=== PATIENT | female | born 1975 | race African-American/Black ===

== ENCOUNTER 2016-10-06 17:31 | Emergency (ER) | payer OTHER ==
[~2016-10-06 17:31] MED LIST: ALPH-E-MIXED-4400 IU PO; AMOXICILLIN500 M3 PO; ATIVAN0.5 M1 PO; ATIVAN1 MG PO; BENTYL20 MG PO; BLM PO; CLONIDINE0.1 MG PO; DELTASONE20 MG PO; DIFLUCAN150 MG PO; DILAUDID2 MG PO; FLAGYL250 MG PO; IBU600 MG PO; IBUPROFEN800 M1 PO; LEVSIN0.125 MG PO; LEXAPRO 20MG M20 MG PO; LEXAPRO10 M1 PO; LIDOCAINE HCL V15 ML PO; METHADONE HC10 MG/ML PO; METHADONE HYDROC5 MG PO; MOBIC15 M1 PO; MOTRIN 600 MG600 MG PO; NEURONTIN300 MG PO; PEPCID 20MG TAB20 MG PO; PERCOCET 5-3251 EACH PO; PERIOGARD473 ML PO; PROTONIX 40MG T40 MG PO; SEROQUEL 100MG100 MG PO; TRAZODONE50 MG PO; TRIAMCINOLONE A15 G3 TOP; TYLENOL #31 TAB PO; TYLENOL WITH C1 EACH PO; VENTOLIN HFA18 GM INH; VICODIN 5-3001 EACH PO; VISTARIL25 M1 PO; VISTARIL50 M1 PO; VISTARIL50 MG PO; VITAMIN B COMPL1 CAP PO; VITAMIN D3400 IU PO; ZITHROMAX250 M2 PO; ZOFRAN4 M1 PO; ZOFRAN4 M2 PO
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
[2016-10-06] MEDS ORDERED: VICODIN 5-3001 EACH PO (18:58)
[2016-10-06] MEDS ORDERED: AUGMENTIN 875-1 EACH PO (18:58)
[2016-10-06] MEDS ORDERED: BACTROBAN15 GM TOP (18:58)
[2016-10-06 19:14] VITALS: BP 116/76
== END 2016-10-06 19:15 ==
LOC: ERH 17:31
DX: T24.002A Burn of unspecified degree of unspecified site of left lower limb, except ankle and foot, initial encounter (principal); K08.89 Other specified disorders of teeth and supporting structures

== ENCOUNTER 2016-10-11 04:10 | Emergency (ER) | payer OTHER ==
[~2016-10-11] VITALS: Ht 165.1 cm; Wt 78.9 kg
[~2016-10-11 04:10] MED LIST changes: +AUGMENTIN 875-1 EACH PO; +BACTROBAN15 GM TOP
[2016-10-11 04:22] VITALS: BP 130/86
--- NOTE | 2016-10-11 04:33 | ED THROAT/DENTAL COMPLAINT ---
History of Present Illness General Chief Complaint: Sore Throat, Dental Pain Stated Complaint: DENTAL PAIN Source: patient Exam Limitations: no limitations Vital Signs & Intake/Output Vital Signs & Intake/Output Vital Signs Date Time Temp Pulse Resp B/P Pulse O2 O2 Flow FiO2 Ox Delivery Rate 10/11 0422 97.8 96 18 130/86 96 Room Air Allergies Coded Allergies: latex (Severe, ITCHY RASH 06/03/16) lactose (Severe, LACTOSE INTOLERANT 06/03/16) tramadol (Severe, ITCHING 06/03/16) Reconcile Medications Amoxicillin 875 MG TABLET 1 TAB PO BID DENTAL INFECTION Hydrocodone/Acetaminophen ([place] 5-325 Tablet) 5 MG-325 MG TABLET 1 TAB PO BIDP PRN BREAKTHROUGH PAIN Ibuprofen 800 MG TABLET 1 TAB PO PRN PAIN (Reported) Triage Note: PT TO ED COMPLAINING OF A BAD TOOTACHE THAT STARTED LAST NIGHT AFTER SHE AT SOME CAKE. PT STATES THAT SHE TOOK SOME TYLENOL ABOUT 30 MINUTES AGO FOR THE TOOTHACE. PT ALSO COMPLAINS OF NAUSEA. Triage Nurses Notes Reviewed? yes Onset: Gradual Duration: week(s): (1), worse persistent since (LAST NIGHT) Timing: recent history Injury Environment: home Severity: moderate : No Patient currently breastfeeds: No HPI: 41 year female presents with worsening tooth pain x 1 week. She states it got worse after eating cake yesterday. No fever or chills. She states that she is due to see the dentist. Past History Travel History Traveled to [place] past 21 day No Medical History Any Pertinent Medical History? 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 No Review of Systems Review of Systems Constitutional: Denies: chills, fever. EENTM: Reports: mouth pain, tooth pain. Respiratory: Denies: cough, short of breath. Cardiovascular: Denies: chest pain. GI: Reports: no symptoms. Genitourinary: Reports: no symptoms. Musculoskeletal: Reports: no symptoms. Skin: Reports: no symptoms. Neurological/Psychological: Reports: no symptoms. Hematologic/Endocrine: Denies: bruising, bleeding. Immunologic/Allergic: Reports: no symptoms. All Other Systems: Reviewed and Negative Physical Exam Physical Exam General Appearance: well developed/nourished, alert, awake Head: atraumatic, normal appearance Eyes: Bilateral: normal appearance, PERRL, EOMI. Ears: Bilateral: canal normal, Tympanic normal. Nose: normal inspection Mouth/Throat: normal mouth inspection, TTP RIGHT MOLAR Neck: normal inspection, supple, full range of motion Cardiovascular/Respiratory: normal breath sounds, normal peripheral pulses Neurologic/Psych: awake, alert, oriented x 3 Diagram Dental: 1) TTP Core Measures ACS in differential dx? No Severe Sepsis Present: No Septic Shock Present: No Progress Differential Diagnosis: carious tooth, odontogenic abscess, tooth fracture Plan of Care: Current Medications Sig/Eusebio Start time Last Medication Dose Stop Time Status Admin Ibuprofen 800 MG ONCE ONE 10/11 0500 UNVr (Motrin) 10/11 0501 Departure Departure Time of Disposition: 0456 Disposition: HOME OR SELF CARE Condition: Stable Clinical Impression Primary Impression: Odontalgia Secondary Impressions: Infected tooth Referrals: UNKNOWN (PCP/Family) Additional Instructions: Take the amoxicillin and ibuprofen as directed. Please follow-up with your dentist in the office. Return to the ER for any changing or worsening symptoms. Departure Forms: Customer Survey General Discharge Information Prescriptions: Current Visit Scripts Amoxicillin 1 TAB PO BID #20 TAB
[2016-10-11] MEDS ORDERED: AMOXICILLIN875 M1 PO (04:55)
[2016-10-11] MEDS ORDERED: IBUPROFEN800 M1 PO (04:55)
== END 2016-10-11 05:12 ==
LOC: ERH 04:10
DX: K04.7 Periapical abscess without sinus (principal); K08.89 Other specified disorders of teeth and supporting structures

== ENCOUNTER 2016-10-16 19:10 | Emergency (ER) | payer OTHER ==
[~2016-10-16] VITALS: Ht 165.1 cm; Wt 77.1 kg
[~2016-10-16 19:10] MED LIST changes: +AMOXICILLIN875 M1 PO
[2016-10-16] MEDS ORDERED: IBUPROFEN800 M1 PO (20:32)
--- NOTE | 2016-10-16 20:58 | ED GI/GU/ABDOMINAL COMPLAINT ---
History of Present Illness General Chief Complaint: General Adult Stated Complaint: "PERIOD CRAMPS" Source: patient, old records Exam Limitations: no limitations Vital Signs & Intake/Output Vital Signs & Intake/Output Vital Signs Date Time Temp Pulse Resp B/P Pulse O2 O2 Flow FiO2 Ox Delivery Rate 10/17 2115 98.1 73 16 104/64 98 Room Air 10/16 1944 97.5 72 18 136/79 98 Room Air ED Intake and Output 10/17 0000 10/16 1200 Intake Total 0 Output Total Balance 0 Intake, Oral 0 Patient 170 lb Weight Allergies Coded Allergies: latex (Severe, ITCHY RASH 06/03/16) lactose (Severe, LACTOSE INTOLERANT 06/03/16) tramadol (Severe, ITCHING 06/03/16) Reconcile Medications Amoxicillin 875 MG TABLET 1 TAB PO BID DENTAL INFECTION Hydrocodone/Acetaminophen ([place] 5-325 Tablet) 5 MG-325 MG TABLET 1 TAB PO BIDP PRN BREAKTHROUGH PAIN Ibuprofen 800 MG TABLET 1 TAB PO PRN PAIN (Reported) Triage Note: PT TO TRIAGE WITH C/O LLQ ABD PAIN 03/09 SINCE THIS MORNING. HX OF OVARIAN CYST. PT DENIES N/V/D, DENIES URINARY S/S, DENIES CHEST PAIN,SOB. PT AFEBRILE IN TRIAGE, VSS. Triage Nurses Notes Reviewed? yes LMP (ages 10-50): now ? N Is pt currently ? No Onset: Abrupt Duration: day(s): (1), constant Timing: recent history Quality/Severity: aching, cramping Severity Numbers: 4 Location: suprapubic Radiation: suprapubic Activities at Onset: none Prior Abdominal Problems: similar symptoms (H/O OVARIAN CYST) No Modifying Factors: none Associated Symptoms: DENIES HPI: 41-year-old female with history of ovarian cyst presents emergency room complaining of suprapubic abdominal pain described as cramping 8 out of 10 intermittent waxing and waning in intensity that came on today. The patient states her menstrual cycle began today as well as scheduled. She has a history of ovarian cyst and is followed by Dr. Chen. She states this pain feels similar. It is nonradiating. She took her last Vicodin today which she had after being seen here last week for a burn states helped with the pain. She denies any diarrhea. She denies chance of vaginal discharge. No history of sexual transmitted disease. No fever no chills no urinary urgency frequency dysuria. (TAMAR CUEVA) Past History Travel History Traveled to [place] past 21 day No Medical History Any Pertinent Medical History? 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 No (TAMAR CUEVA) Review of Systems Review of Systems Constitutional: Reports: see HPI. All Other Systems: Reviewed and Negative Comments Review of systems: See HPI, All other systems negative. Constitutional, no chills no fever, no malaise HEENT: no sore throat no congestion, no ear pain Cardiovascular: No chest pain , no palpitation Skin, no rashes, no change in skin Respiratory: No dyspnea no cough no sputum no hemoptysis GI: No nausea no vomiting, no diarrhea, no bloating/constipation : No dysuria No hematuria, no frequency, no discharge Muscle skeletal: No joint pain, no back pain, no neck pain, Neurologic: no headache Psych: No stress Heme/endocrine: No bruising no bleeding Immunology: No lymphadenopathy, (TAMAR CUEVA) Physical Exam Physical Exam General Appearance: well developed/nourished, alert, awake Gastrointestinal: soft Comments: Well-developed well-nourished person in no acute distress HEENT: Normal EENT exam; PERRL, EOMI, HEAD is atraumatic. moist mucous membranes. Neck: Supple, normal range of motion Back: Nontender, no CVA tenderness. Full range of motion Cardiovascular: Regular rate and rhythms no murmurs rubs Respiratory: No respiratory distress. Patient speaking in full complete sentences. Breath sounds clear to auscultation bilaterally: NO W/R/R Abdomen: Soft, nontender nondistended, no appreciable organomegaly. Normal bowel sounds. No rebound/guarding, is no right lower quadrant tenderness negative Rovsing sign and negative obturator sign Extremity: No edema, full range of motion of extremities, Neuro: Alert oriented x3, motor sensory normal, There were no obvious focal neurologic abnormalities. Skin: No appreciable rash on exposed skin, skin is warm and dry. Psych: Mood and affect is normal, memory and judgment is normal. Core Measures ACS in differential dx? No Severe Sepsis Present: No Septic Shock Present: No (TAMAR CUEVA) Progress Differential Diagnosis: ectopic , inflamm bowel dis, intrauterine , ovarian cyst, ovarian torsion, SBO, threatened AB, UTI/pyelo Plan of Care: Orders Procedure Date/time Status URINE 10/17 2015 Complete URINALYSIS 10/17 2015 Complete Laboratory Tests 10/16/162023: Urinalysis MANY H, Urine Color PINK H, Urine Clarity CLEAR, Urine pH 6.0, Ur Specific [place] <= 1.005, Urine Protein 100 H, Urine Ketones NEG, Urine Nitrite NEG, Urine Bilirubin NEG, Urine Urobilinogen 0.2, Ur Leukocyte Esterase TRACE H, Ur Microscopic SEDIMENT EXAMINED, Urine RBC 10-15 H, Urine WBC 1-3 H , Ur Epithelial Cells FEW, Urine Bacteria FEW H, Urine Mucus FEW, Urine Hemoglobin LARGE H, Urine Glucose NEG, Urine Test NEGATIVE Patient clinically appears well, I advised she follow up with her GEOGRAPHY INSTRUCTOR Dr. Mitchell tomorrow she may need an outpatient ultrasound prescription for Vicodin was provided, advised she continue taking ibuprofen 800 mg every 8 hours heating pads, return anytime sooner with any concerns she feels comfortable this plan answered all her questions cleared for discharge (TAMAR CUEVA) Initial ED EKG: none (TAMAR CUEVA) Departure Departure Time of Disposition: 2108 Disposition: HOME OR SELF CARE Condition: Stable Clinical Impression Primary Impression: Abdominal pain Referrals: CARL FINK,ADRYAN STEVEN (PCP/Family) Additional Instructions: Follow-up with your GEOGRAPHY INSTRUCTOR tomorrow as you may require an outpatient ultrasound. Vicodin for breakthrough pain. Use caution as this is a narcotic and highly addictive no driving or drinking alcohol while taking. Ibuprofen 800 mg every 8 hours Departure Forms: Customer Survey General Discharge Information Prescriptions: Current Visit Scripts Hydrocodone/Acetaminophen ([place] 5-325 Tablet) 1 TAB PO BIDP PRN BREAKTHROUGH PAIN #8 TAB (TETE DIAZ,TAMAR) PA/ELECTROLYSIS ENGINEER Co-Sign Statement Statement: ED Attending supervision documentation- [] I saw and evaluated the patient. I have also reviewed all the pertinent lab results and diagnostic results. I agree with the findings and the plan of care as documented in the PA's/ELECTROLYSIS ENGINEER's documentation. [x] I have reviewed the ED Record and agree with the PA's/ELECTROLYSIS ENGINEER's documentation. [] Additions or exceptions (if any) to the PAs/ELECTROLYSIS ENGINEER's note and plan are summarized below: [] (YULI FINK,JESUS Pryor)
[2016-10-16] MEDS ORDERED: NORCO 5-325 TA1 EACH PO (21:11)
[2016-10-16 21:16] VITALS: BP 104/64
== END 2016-10-16 21:19 ==
LOC: ERH 19:10
DX: R10.32 Left lower quadrant pain (principal)
CPT/HCPCS: 81001; 81025

== ENCOUNTER 2016-10-27 22:07 | Emergency (ER) | payer OTHER ==
[~2016-10-27] VITALS: Ht 165.1 cm; Wt 77.1 kg
[~2016-10-27 22:07] MED LIST changes: +NORCO 5-325 TA1 EACH PO
[2016-10-28] MEDS ORDERED: HYDROCODON-ACE1 EAC2 PO (00:09)
--- NOTE | 2016-10-28 00:11 | ED THROAT/DENTAL COMPLAINT ---
History of Present Illness General Chief Complaint: Sore Throat, Dental Pain Stated Complaint: DENTAL PAIN Source: patient Exam Limitations: no limitations Vital Signs & Intake/Output Vital Signs & Intake/Output Vital Signs Date Time Temp Pulse Resp B/P Pulse O2 O2 Flow FiO2 Ox Delivery Rate 10/28 0016 98.9 88 18 127/75 97 Room Air 10/27 2225 99.2 92 18 143/88 96 Room Air ED Intake and Output 10/28 0000 10/27 1200 Intake Total Output Total Balance Patient 170 lb Weight Allergies Coded Allergies: latex (Severe, ITCHY RASH 06/03/16) lactose (Severe, LACTOSE INTOLERANT 06/03/16) tramadol (Severe, ITCHING 06/03/16) Reconcile Medications Amoxicillin 875 MG TABLET 1 TAB PO BID DENTAL INFECTION Hydrocodone/Acetaminophen (Hydrocodon-Acetaminophen 5-325) 5 MG-325 MG TABLET 1-2 TAB PO Q4-6 PRN PRN pain Hydrocodone/Acetaminophen ([place] 5-325 Tablet) 5 MG-325 MG TABLET 1 TAB PO BIDP PRN BREAKTHROUGH PAIN Ibuprofen 800 MG TABLET 1 TAB PO PRN PAIN (Reported) Triage Note: PT TO ED C/O RT LOWER TOOTH PAIN TODAY Triage Nurses Notes Reviewed? yes Onset: Abrupt Duration: day(s):, intermittent Timing: recent history Severity: moderate, severe No Modifying Factors: none : No Patient currently breastfeeds: No HPI: 41-year-old female comes into emergency room with complaints of dental pain has been going on for the past few days. History of dental pain previously. Pain is sharp. Continuous. Located in the right frontal tooth as well as right upper molar. Denies any other associated symptoms. Nonradiating. (TRACIE GARCIA) Past History Travel History Traveled to [place] past 21 day No Medical History Any Pertinent Medical History? 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 No (TRACIE GARCIA) Review of Systems Review of Systems Constitutional: Reports: no symptoms. EENTM: Reports: see HPI. Respiratory: Reports: no symptoms. Cardiovascular: Reports: no symptoms. GI: Reports: no symptoms. Genitourinary: Reports: no symptoms. Musculoskeletal: Reports: no symptoms. Skin: Reports: no symptoms. Neurological/Psychological: Reports: no symptoms. Hematologic/Endocrine: Reports: no symptoms. Immunologic/Allergic: Reports: no symptoms. All Other Systems: Reviewed and Negative (TRACIE GARCIA) Physical Exam Physical Exam General Appearance: well developed/nourished, no apparent distress, alert Head: atraumatic, normal appearance Eyes: Bilateral: normal appearance. Nose: normal inspection Mouth/Throat: normal mouth inspection, dental tenderness Neck: normal inspection, full range of motion Cardiovascular/Respiratory: no respiratory distress Back: normal inspection Neurologic/Psych: awake, alert, oriented x 3 Skin: intact, normal color Diagram Dental: 1) tenderness 2) Tenderness Core Measures ACS in differential dx? No Severe Sepsis Present: No Septic Shock Present: No (TRACIE GARCIA) Progress Differential Diagnosis: aspirated tooth, carious tooth, epiglottitis, Ludwigs angina, meningitis, odontogenic abscess, rishabh-tonsillar abscess, pharyngeal for. body, stomatitis/gingivitis, strep pharyngitis, tooth fracture Plan of Care: 10/28/2016 12:16:01 AM Patient clinically looks well. Nontoxic-appearing. No signs of infection. At this time patient will not be started on oral antibiotics. Follow-up with dentist. Return if any other concerns worsening symptoms. (TRACIE GARCIA) Departure Departure Disposition: HOME OR SELF CARE Condition: Stable Clinical Impression Primary Impression: Odontalgia Referrals: UNKNOWN (PCP/Family) Additional Instructions: Take Vicodin for pain. Follow-up with dentist. Return if any other concerns worsening symptoms. Please go over all results of today's visit with your primary care doctor. Contact your primary care doctor to let them know you were here in the emergency room. There may be nonspecific findings which may not be related to your visit today here in the emergency room but may require further evaluation and chronic monitoring by your primary care doctor. If you had a laceration today the chance of foreign body always remains. You should follow-up with your primary care doctor for recheck in 3-5 days for a wound check. If you had an x-ray done there is a chance that a fracture could have been missed on initial read and you should follow-up with your primary care doctor for repeat x-rays if symptoms persist. If your blood pressure was elevated here in the emergency room please have rechecked by her primary care doctor within the next 48 hours by your primary care doctor. If you were prescribed a narcotic here in the emergency room or any type of controlled substances you're not allowed to drive while taking this medication or operate any type of heavy machinery. Narcotics can make you feel lightheaded dizziness nausea and can cause constipation. You may need to lease picker a stool softener. Thank you for choosing [facility] emergency room. Please return to the emergency room immediately if you have any other concerns worsening of symptoms. Departure Forms: Customer Survey General Discharge Information Prescriptions: Current Visit Scripts Hydrocodone/Acetaminophen (Hydrocodon-Acetaminophen 5-325) 1-2 TAB PO Q4-6 PRN PRN pain #8 TAB (TRACIE GARCIA) PA/CHEMICAL PROCESSING EQUIPMENT REPAIRER Co-Sign Statement Statement: ED Attending supervision documentation- [] I saw and evaluated the patient. I have also reviewed all the pertinent lab results and diagnostic results. I agree with the findings and the plan of care as documented in the PA's/CHEMICAL PROCESSING EQUIPMENT REPAIRER's documentation. x I have reviewed the ED Record and agree with the PA's/CHEMICAL PROCESSING EQUIPMENT REPAIRER's documentation. [] Additions or exceptions (if any) to the PAs/CHEMICAL PROCESSING EQUIPMENT REPAIRER's note and plan are summarized below: [] (DYLAN FINK,MADAY)
[2016-10-28 00:16] VITALS: BP 127/75
== END 2016-10-28 00:17 ==
LOC: ERH 22:07
DX: K08.89 Other specified disorders of teeth and supporting structures (principal)

== ENCOUNTER 2016-11-09 04:40 | Emergency (ER) | payer OTHER ==
[~2016-11-09] VITALS: Ht 165.1 cm; Wt 77.1 kg
[~2016-11-09 04:40] MED LIST changes: +HYDROCODON-ACE1 EAC2 PO
[2016-11-09 04:51] VITALS: BP 122/82
--- NOTE | 2016-11-09 05:01 | ED INFLUENZA/URI COMPLAINT ---
History of Present Illness General Chief Complaint: Upper Respiratory Sx/Fever Stated Complaint: COUGH, CONGESTION, FEVER, X 3 DAYS Source: patient, old records Exam Limitations: no limitations Vital Signs & Intake/Output Vital Signs & Intake/Output Vital Signs Date Time Temp Pulse Resp B/P Pulse O2 O2 Flow FiO2 Ox Delivery Rate 11/09 0510 99.2 11/09 0455 96 Room Air 11/09 0451 99.2 97 18 122/82 95 Room Air Allergies Coded Allergies: latex (Severe, ITCHY RASH 11/09/16) lactose (Severe, LACTOSE INTOLERANT 11/09/16) tramadol (Severe, ITCHING 11/09/16) Reconcile Medications Amoxicillin 500 MG TABLET 1 TAB PO TID BRONCHITIS Codeine Phosphate/Guaifenesi (Cheratussin AC Syrup) 10 MG-100 MG/5 ML LIQUID 10 ML PO Q6P PRN COUGH Triage Note: TRIAGE: PATIENT TO ER FROM HOME REPORTING "REALLY BAD COUGH, COUGHING UP YELLOW AND GREEN X 3 DAYS." PATIENT REPORTING "MAKES IT HARD FOR ME TO BREATHE." +NASAL CONGESTION. NO ACUTE RESP DISTRESS NOTED. Triage Nurses Notes Reviewed? yes : No Patient currently breastfeeds: No HPI: Patient presents with fevers, chills and a productive cough off the past 3 days. Patient states that now she is getting sharp chest pain with coughing. There is no radiation of pain. There is no pain when she is not coughing. The pain is 8 out of 10 when she does cough. Patient denies any orthopnea. Past History Travel History Traveled to [place] past 21 day No Medical History Any Pertinent Medical History? 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 No Review of Systems Review of Systems Constitutional: Reports: see HPI, chills, fever. EENTM: Reports: no symptoms. Respiratory: Reports: see HPI, cough. Cardiovascular: Reports: see HPI, chest pain. GI: Reports: no symptoms. Genitourinary: Reports: no symptoms. Musculoskeletal: Reports: no symptoms. Skin: Reports: no symptoms. Neurological/Psychological: Reports: no symptoms. Hematologic/Endocrine: Reports: no symptoms. Immunologic/Allergic: Reports: no symptoms. All Other Systems: Reviewed and Negative Physical Exam Physical Exam General Appearance: well developed/nourished, alert, awake, anxious, moderate distress Head: atraumatic, normal appearance Eyes: Bilateral: PERRL, EOMI. Ears, Nose, Throat: normal ENT inspection, moist mucous membrane, hearing grossly normal Neck: normal inspection, supple, full range of motion Respiratory: rhonchi, TENDER TO PALPATION Cardiovascular: regular rate/rhythm, normal peripheral pulses Gastrointestinal: normal bowel sounds, soft, non-tender, no organomegaly Back: normal inspection, normal range of motion Extremities: normal inspection, normal capillary refill, normal range of motion, no edema Neurologic/Psych: no motor/sensory deficits, awake, alert, oriented x 3, normal gait Skin: intact, normal color, warm/dry Lymphatic: no anterior cervical crow Core Measures Severe Sepsis Present: No Septic Shock Present: No Progress Differential Diagnosis: pneumonia, sinusitis, BRONCHITIS Plan of Care: Orders Procedure Date/time Status XRY-CHEST XRAY, PA AND LATERAL 11/09 500 Active Diagnostic Imaging: Viewed by Me: Radiology Read. Discussed w/RAD: Radiology Read. CXR Impression: PATIENT: PETER ENRIQUEZ PRESENT AGE: 41 PATIENT ACCOUNT NO: [id number] : 74 LOCATION: [facility] ORDERING PHYSICIAN: ERIC ALEXANDER MD SERVICE DATE: 11/09/16050 EXAM TYPE: RAD - XRY-CHEST XRAY, PA AND LATERAL EXAMINATION: CHEST 2 VIEWS CLINICAL INFORMATION: Cough, fever. COMPARISON: 09/05/2013. TECHNIQUE: PA and lateral views of the chest were obtained. FINDINGS: The cardiac silhouette is not enlarged. The mediastinal and hilar contours are unremarkable. There are neither pleural effusions nor pneumothoraces. There are no consolidations. The osseous structures are unremarkable. IMPRESSION: No evidence for acute disease. DICTATED BY: DUANE MAXWELL MD DATE/TIME DICTATED:11/09/16525 ELECTRONIC HEAT SEAL OPERATOR:ALFREDO DATE/TIME TRANSCRIBED:11/09/16525 CONFIDENTIAL, DO NOT COPY WITHOUT APPROPRIATE AUTHORIZATION. <Electronically signed in Other Vendor System> SIGNED BY: DUANE MAXWELL MD 11/09/16529 Initial ED EKG: none Departure Departure Disposition: HOME OR SELF CARE Condition: Stable Clinical Impression Primary Impression: Bronchitis Referrals: UNKNOWN (PCP/Family) Additional Instructions: DRINK PLENTY OF FLUIDS RETURN FOR ANY CONCERNS Departure Forms: Customer Survey General Discharge Information Prescriptions: Current Visit Scripts Amoxicillin 1 TAB PO TID #30 TAB Codeine Phosphate/Guaifenesi (Cheratussin AC Syrup) 10 ML PO Q6P PRN COUGH #240 ML
--- NOTE | 2016-11-09 05:30 | RADIOLOGY REPORT ---
EXAMINATION: CHEST 2 VIEWS CLINICAL INFORMATION: Cough, fever. COMPARISON: 09/05/2013. TECHNIQUE: PA and lateral views of the chest were obtained. FINDINGS: The cardiac silhouette is not enlarged. The mediastinal and hilar contours are unremarkable. There are neither pleural effusions nor pneumothoraces. There are no consolidations. The osseous structures are unremarkable. IMPRESSION: No evidence for acute disease.
[2016-11-09] MEDS ORDERED: AMOXICILLIN500 M3 PO (05:33)
[2016-11-09] MEDS ORDERED: CHERATUSSIN AC118 M1 PO (05:33)
== END 2016-11-09 05:47 ==
LOC: ERH 04:40
DX: J40 Bronchitis, not specified as acute or chronic (principal); Z72.0 Tobacco use

== ENCOUNTER 2016-11-16 13:45 | Emergency (ER) | payer OTHER ==
[~2016-11-16] VITALS: Ht 165.1 cm; Wt 77.1 kg
[~2016-11-16 13:45] MED LIST changes: +CHERATUSSIN AC118 M1 PO
[2016-11-16 14:05] VITALS: BP 119/75
--- NOTE | 2016-11-16 14:18 | ED THROAT/DENTAL COMPLAINT ---
History of Present Illness General Chief Complaint: Sore Throat, Dental Pain Stated Complaint: DENTAL PAIN Source: patient, old records Exam Limitations: no limitations Vital Signs & Intake/Output Vital Signs & Intake/Output Vital Signs Date Time Temp Pulse Resp B/P B/P Pulse O2 O2 Flow FiO2 Mean Ox Delivery Rate 11/16 1405 99.0 72 18 119/75 97 Room Air Allergies Coded Allergies: latex (Severe, ITCHY RASH 11/09/16) lactose (Severe, LACTOSE INTOLERANT 11/09/16) tramadol (Severe, ITCHING 11/09/16) Reconcile Medications Amoxicillin 500 MG TABLET 1 TAB PO TID BRONCHITIS Codeine Phosphate/Guaifenesi (Cheratussin AC Syrup) 10 MG-100 MG/5 ML LIQUID 10 ML PO Q6P PRN COUGH Hydrocodone/Acetaminophen ([place] 5-325 Tablet) 5 MG-325 MG TABLET 1 TAB PO Q4- 6 PRN PRN pain Ibuprofen 800 MG TABLET 1 TAB PO TID PRN pain Triage Note: PT TO TRIAGE WITH TOOTHACHE 10/10, PT TOOK TYLENOL THIS MORNING WITH NO PAIN RELIEF. VSS. Triage Nurses Notes Reviewed? yes Onset: Abrupt Duration: day(s): (2), constant Timing: recent history Injury Environment: home Severity: moderate Severity Numbers: 10 Modifying Factors: Worsens With: eating. Associated Symptoms: DENIES : No Patient currently breastfeeds: No HPI: 41-year-old female presents emergency room complaining of a severe right lower toothache 10 out of 10 for the past 2 days at the site of a previously cracked tooth. She states she is scheduled to see a dentist on Monday. She's been taking Tylenol without any improvement. Pain is worse with palpation eating. She states she was using a toothpick today and believes she made the pain worse.No sore throat no difficulty swallowing no fever no chills (TAMAR CUEVA) Past History Travel History Traveled to [place] past 21 day No Medical History Any Pertinent Medical History? 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 No (TAMAR CUEVA) Review of Systems Review of Systems Constitutional: Reports: see HPI. All Other Systems: Reviewed and Negative Comments Review of systems: See HPI, All other systems negative. Constitutional, no chills no fever, no malaise HEENT: No visual changes no sore throat no congestion, no ear pain Cardiovascular: No chest pain , no palpitation Skin: no rashes, no change in skin Respiratory: No dyspnea no cough no sputum GI: No nausea no vomiting, no diarrhea, : No dysuria Muscle skeletal: No joint pain, no back pain, no neck pain, Neurologic: no headache Psych: No stress Heme/endocrine: No bruising no bleeding Immunology: No lymphadenopathy (TAMAR CUEVA) Physical Exam Physical Exam General Appearance: well developed/nourished, no apparent distress, alert, awake Mouth/Throat: dental tenderness (R LOWER) Comments: Well-developed well-nourished patient in no apparent distress. Head/Face: Atraumatic, no maxillary/frontal sinus tenderness, no facial swelling Eyes: PERRL, EOMI, no conjunctival injection Ear:External auditory canals clear Nose: atraumatic.Normal inspection: No bleeding Throat: Right lower dental tenderness cracked tooth Moist mucous membranes.Pharynx normal. No pharyngeal erythema/exudate seen. No stridor/ drooling or assymetry. No swelling or edema. Neck: Supple, no lymphadenopathy, FROM Back: FROM Cardiovascular: Regular rate and rhythms no murmurs rubs or gallops, Respiratory: No respiratory distress. Patient speaking in full complete sentences. Breath sounds clear to auscultation bilaterally: NO W/R/R Extremities: full range of motion Neuro: awake, alert, and oriented to person, place and time. There were no obvious focal neurologic abnormalities. Skin: Warm & dry;No appreciable rash on exposed skin Psych: Mood affect normal, normal memory normal judgment. Core Measures ACS in differential dx? No Severe Sepsis Present: No Septic Shock Present: No (TAMAR CUEVA) Progress Differential Diagnosis: aspirated tooth, carious tooth, epiglottitis, Ludwigs angina, odontogenic abscess, rishabh-tonsillar abscess, stomatitis/gingivitis, tooth fracture Plan of Care: Advised patient follow up with her dentist as scheduled on Monday she is currently on amoxicillin for an upper respiratory infection. Prescription for [place] provided advised to use caution as this will make her drowsy no driving or drinking alcohol while taking. CT DIRECTOR MARKETING was reviewed she feels comfortable plan (TAMAR CUEVA) Departure Departure Time of Disposition: 1441 Disposition: HOME OR SELF CARE Condition: Stable Clinical Impression Primary Impression: Toothache Referrals: UNKNOWN (PCP/Family) Additional Instructions: [place] as directed ibuprofen 800 mg as needed follow-up with your dentist as scheduled this week these prescriptions were sent to your pharmacy Departure Forms: Customer Survey General Discharge Information Prescriptions: Current Visit Scripts Hydrocodone/Acetaminophen ([place] 5-325 Tablet) 1 TAB PO Q4-6 PRN PRN pain #8 TAB Ibuprofen 1 TAB PO TID PRN pain #30 TAB (TAMAR CUEVA) PA/NET DEVELOPER CONTRACT Co-Sign Statement Statement: ED Attending supervision documentation- [] I saw and evaluated the patient. I have also reviewed all the pertinent lab results and diagnostic results. I agree with the findings and the plan of care as documented in the PA's/NET DEVELOPER CONTRACT's documentation. [X] I have reviewed the ED Record and agree with the PA's/NET DEVELOPER CONTRACT's documentation. [] Additions or exceptions (if any) to the PAs/NET DEVELOPER CONTRACT's note and plan are summarized below: [] (SHANE FINK,HERLINDA)
[2016-11-16] MEDS ORDERED: NORCO 5-325 TA1 EACH PO (14:44)
[2016-11-16] MEDS ORDERED: IBUPROFEN800 M1 PO (14:44)
== END 2016-11-16 14:47 ==
LOC: ERH 13:45
DX: K08.89 Other specified disorders of teeth and supporting structures (principal)

== ENCOUNTER 2016-12-14 11:42 | Emergency (ER) | payer OTHER ==
[~2016-12-14] VITALS: Ht 165.1 cm; Wt 72.6 kg
[2016-12-14 11:48] VITALS: BP 101/62
[2016-12-14] MEDS ORDERED: SEROQUEL200 M1 PO (13:59)
[2016-12-14] MEDS ORDERED: LEXAPRO10 M1 PO (14:00)
[2016-12-14] MEDS ORDERED: VISTARIL50 M1 PO (14:00)
[2016-12-14] MEDS ORDERED: TRAZODONE HCL50 M1 PO (14:00)
[2016-12-14] MEDS ORDERED: PROTONIX40 M3 PO (14:00)
[2016-12-14] MEDS ORDERED: IBUPROFEN600 M1 PO (14:45)
[2016-12-14] MEDS ORDERED: NORCO 5-325 TA1 EACH PO (14:45)
--- NOTE | 2016-12-14 14:46 | ED THROAT/DENTAL COMPLAINT ---
History of Present Illness General Chief Complaint: Sore Throat, Dental Pain Stated Complaint: DEMTAL PAIN Source: patient, old records Exam Limitations: no limitations Vital Signs & Intake/Output Vital Signs & Intake/Output Vital Signs Date Time Temp Pulse Resp B/P B/P Pulse O2 O2 Flow FiO2 Mean Ox Delivery Rate 12/14 1148 97.6 83 16 101/62 100 Room Air Allergies Coded Allergies: latex (Severe, ITCHY RASH 11/09/16) lactose (Severe, LACTOSE INTOLERANT 11/09/16) tramadol (Severe, ITCHING 11/09/16) Reconcile Medications Escitalopram Oxalate (Lexapro) 10 MG TABLET 3 TAB PO DAILY MENTAL HEALTH ( Reported) Hydrocodone/Acetaminophen ([place] 5-325 Tablet) 5 MG-325 MG TABLET 1-2 TAB PO Q4-6 PRN PRN DENTAL PAIN Hydroxyzine Pamoate (Vistaril) 50 MG CAPSULE 1 CAP PO 4 TIMES/DAY MENTAL HEALTH (Reported) Ibuprofen 600 MG TABLET 1 TAB PO TID PRN PAIN with food Pantoprazole Sodium (Protonix) 40 MG TABLET.DR 1 TAB PO DAILY GI (Reported) Quetiapine Fumarate (Seroquel) 200 MG TABLET 1 TAB PO QPM MENTAL HEALTH ( Reported) Trazodone HCl 50 MG TABLET 1 TAB PO QPM SLEEP (Reported) Triage Note: 41 Y/O FEMALE C/O DENTAL PAIN. TOOK 800MG MOTRIN AROUND 0800 WITH NO RELIEF Triage Nurses Notes Reviewed? yes : No Patient currently breastfeeds: No HPI: Patient presents with toothache to her right lower jaw. Patient states that she has broken tooth and is due to have it extracted later this week. The pain is 10 out of 10. There are no mitigating factors. The pain worsened with cold liquids. The pain is constant. Patient was seen here a month ago with similar complaints. Past History Travel History Traveled to [place] past 21 day No Medical History Any Pertinent Medical History? 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 No Review of Systems Review of Systems Constitutional: Reports: no symptoms. EENTM: Reports: see HPI, tooth pain. Respiratory: Reports: no symptoms. Cardiovascular: Reports: no symptoms. GI: Reports: no symptoms. Musculoskeletal: Reports: no symptoms. Neurological/Psychological: Reports: no symptoms. Physical Exam Physical Exam General Appearance: well developed/nourished, alert, awake Head: atraumatic Eyes: Bilateral: PERRL, EOMI. Mouth/Throat: dental tenderness Neck: normal inspection, supple, full range of motion Cardiovascular/Respiratory: normal breath sounds, normal peripheral pulses, regular rate/rhythm, no respiratory distress Neurologic/Psych: no motor/sensory deficits, awake, alert, oriented x 3, normal gait, normal mood/affect Core Measures ACS in differential dx? No Severe Sepsis Present: No Septic Shock Present: No Progress Differential Diagnosis: odontogenic abscess, rishabh-tonsillar abscess, tooth fracture Plan of Care: Pain control and follow-up with oral surgery Departure Departure Disposition: HOME OR SELF CARE Condition: Stable Clinical Impression Primary Impression: Broken tooth Qualifiers: Encounter type: subsequent encounter Fracture type: closed Fracture healing: with delayed healing Qualified Code: S02.5XXG - Fracture of tooth ( traumatic), subsequent encounter for fracture with delayed healing Referrals: UNKNOWN (PCP/Family) Additional Instructions: FOLLOW UP WITH YOUR ORAL SURGEON THIS WEEK RETURN FOR ANY CONCERNS Departure Forms: Customer Survey General Discharge Information Prescriptions: Current Visit Scripts Hydrocodone/Acetaminophen ([place] 5-325 Tablet) 1-2 TAB PO Q4-6 PRN PRN DENTAL PAIN #16 TAB Ibuprofen 1 TAB PO TID PRN PAIN #20 TAB with food
== END 2016-12-14 14:51 ==
LOC: ERH 11:42
DX: S02.5XXA Fracture of tooth (traumatic), initial encounter for closed fracture (principal); X58.XXXA Exposure to other specified factors, initial encounter; Y93.9 Activity, unspecified; Y92.9 Unspecified place or not applicable

== ENCOUNTER 2016-12-23 23:47 | Emergency (ER) | payer OTHER ==
[~2016-12-23] VITALS: Ht 165.1 cm; Wt 72.6 kg
[~2016-12-23 23:47] MED LIST changes: +IBUPROFEN600 M1 PO; +PROTONIX40 M3 PO; +SEROQUEL200 M1 PO; +TRAZODONE HCL50 M1 PO
--- NOTE | 2016-12-24 00:03 | ED GI/GU/ABDOMINAL COMPLAINT ---
History of Present Illness General Chief Complaint: Nausea, Vomiting, Diarrhea Stated Complaint: BIBA C/O N/V X'S 10 HRS Source: patient Exam Limitations: no limitations Vital Signs & Intake/Output Vital Signs & Intake/Output Vital Signs Date Time Temp Pulse Resp B/P B/P Pulse O2 O2 Flow FiO2 Mean Ox Delivery Rate 12/23 2358 97 Room Air 12/23 2356 96.2 67 18 148/82 97 Room Air 12/23 2356 98.4 76 18 148/82 98 Room Air ED Intake and Output 12/24 0000 12/23 1200 Intake Total Output Total Balance Patient 160 lb Weight Allergies Coded Allergies: latex (Severe, ITCHY RASH 11/09/16) lactose (Severe, LACTOSE INTOLERANT 11/09/16) tramadol (Severe, ITCHING 11/09/16) Reconcile Medications Escitalopram Oxalate (Lexapro) 10 MG TABLET 3 TAB PO DAILY MENTAL HEALTH ( Reported) Hydrocodone/Acetaminophen ([place] 5-325 Tablet) 5 MG-325 MG TABLET 1-2 TAB PO Q4-6 PRN PRN DENTAL PAIN Hydroxyzine Pamoate (Vistaril) 50 MG CAPSULE 1 CAP PO 4 TIMES/DAY MENTAL HEALTH (Reported) Ibuprofen 600 MG TABLET 1 TAB PO TID PRN PAIN with food Omeprazole Magnesium (Prilosec Otc) 20 MG TABLET.DR 1 TAB PO DAILY STOMACH UPSET Ondansetron (Zofran Odt) 4 MG TAB.RAPDIS 1 TAB SL TID PRN NAUSEA Pantoprazole Sodium (Protonix) 40 MG TABLET.DR 1 TAB PO DAILY GI (Reported) Quetiapine Fumarate (Seroquel) 200 MG TABLET 1 TAB PO QPM MENTAL HEALTH ( Reported) Trazodone HCl 50 MG TABLET 1 TAB PO QPM SLEEP (Reported) Triage Note: PT BIBA FROM HOME C/O NAUSEA/VOMITNG AND ABD BLOATING SINCE 2PM . PT ALSO C/O FEELING "ANXIOUS." Triage Nurses Notes Reviewed? yes ? n Is pt currently ? No Onset: Gradual Duration: hour(s): Timing: recent history Quality/Severity: cramping Location: epigastric Radiation: no radiation Activities at Onset: "I ate pizza and last night I ate steak" Modifying Factors: Worsens With: vomiting. Associated Symptoms: nausea/vomiting HPI: 41yo woman presents with 4 hours of nausea, vomiting and increased anxiety. She notes that she ate some meat yesterday evening and had 3 pieces of pizza for dinner tonight. She has no fever, chills, dyspnea, rash, diarrhea. She is otherwise well. Past History Travel History Traveled to [place] past 21 day No Medical History Any Pertinent Medical History? 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 No Review of Systems Review of Systems Constitutional: Reports: no symptoms. EENTM: Reports: no symptoms. Respiratory: Reports: no symptoms. Cardiovascular: Reports: no symptoms. GI: Reports: no symptoms. Genitourinary: Reports: no symptoms. Musculoskeletal: Reports: no symptoms. Skin: Reports: no symptoms. Neurological/Psychological: Reports: no symptoms. Hematologic/Endocrine: Reports: no symptoms. Immunologic/Allergic: Reports: no symptoms. All Other Systems: Reviewed and Negative Physical Exam Physical Exam General Appearance: well developed/nourished, mild distress, moderate distress Head: atraumatic, normal appearance Eyes: Bilateral: normal appearance. Ears, Nose, Throat, Mouth: hearing grossly normal Neck: normal inspection, supple, full range of motion, normal alignment Respiratory: normal breath sounds, chest non-tender, no respiratory distress, quiet respiration, lungs clear Cardiovascular: regular rate/rhythm Gastrointestinal: normal bowel sounds, soft, mild mid epigastric tenderness to palpation Back: normal inspection, normal range of motion Extremities: normal range of motion Neurologic/Psych: no motor/sensory deficits, awake, alert, oriented x 3 Skin: intact, normal color, warm/dry Core Measures ACS in differential dx? No Severe Sepsis Present: No Septic Shock Present: No Progress Differential Diagnosis: viral syndrome, gastroenteritis, food poisoning. vs other. Plan of Care: Orders Procedure Date/time Status TROPONIN LEVEL 12/24 0003 Complete LIPASE 05/27 0003 Complete HEPATIC FUNCTION PANEL 12/24 2 Complete CBC WITHOUT DIFFERENTIAL 12/24 2 Complete BASIC METABOLIC PANEL 12/24 2 Complete AMYLASE 12/24 2 Complete EKG 12/24 2 Active Current Medications Sig/[place] Start time Last Medication Dose Stop Time Status Admin Promethazine HCl 25 MG ONCE ONE 12/24 244 UNVr 12/24 (Phenergen) 12/24 0246 0258 Sodium Chloride 1,000 ML BOLUS ONE 12/24 244 UNVr 12/24 (Normal Saline 0.9%) 12/24 0344 0258 Laboratory Tests 12/24/16 0025: Anion Gap 10, Estimated GFR > 60, BUN/Creatinine Ratio 18.6, Glucose 96, Calcium 9.2, Total Bilirubin 0.4, Direct Bilirubin 0.3, AST 21, ALT 23, Alkaline Phosphatase 66, Troponin I < 0.01, Total Protein 7.1, Albumin 4.2, Amylase 54, Lipase 32, CBC w Diff NO MAN DIFF REQ, RBC 4.44, MCV 79.0 L, MCH 25.0 L, RDW 16.5 H, MPV 10.3, Gran % 73.9, Lymphocytes % 22.7, Monocytes % 1.7, Eosinophils % 0.9, Basophils % 0.8, Absolute Granulocytes 4.5, Absolute Lymphocytes 1.4, Absolute Monocytes 0.1 L, Absolute Eosinophils 0.1, Absolute Basophils 0, PUBS MCHC 31.7 L Initial ED EKG: normal axis, normal intervals, normal p-waves, normal QRS complex, normal sinus rhythm Departure Departure Disposition: HOME OR SELF CARE Condition: Stable Clinical Impression Primary Impression: Abdominal pain Secondary Impressions: Gastroenteritis, Nausea and vomiting Referrals: UNKNOWN (PCP/Family) Departure Forms: Customer Survey General Discharge Information Prescriptions: Current Visit Scripts Ondansetron (Zofran Odt) 1 TAB SL TID PRN NAUSEA #10 TAB Omeprazole Magnesium (Prilosec Otc) 1 TAB PO DAILY #30 TAB Comments pt feeling better after supportive medications, and iv fluids...on exam, no tenderness to deep palpation... pt safe for discharge and will follow up with pmd.
[2016-12-24 00:41] LABS: ABSOLUTE BASOPHIL COUNT 0 /CUMM (0.0-0.2); ABSOLUTE EOSINOPHIL COUNT 0.1 /CUMM (0.0-0.7); ABSOLUTE GRANULOCYTE CT 4.5 /CUMM (1.4-6.5); ABSOLUTE LYMPH COUNT 1.4 /CUMM (1.2-3.4); ABSOLUTE MONOCYTE COUNT 0.1 /CUMM (0.10-0.60); BASOPHIL % 0.8 % (0.0-2.0); EOSINOPHIL % 0.9 % (0-5); MEAN CORPUSCULAR HGB CONC 31.7 G/DL (33.0-37.0); MEAN PLATELET VOLUME 10.3 FL (7.4-10.4); PLATELET COUNT 232 /CUMM (130-400); RBC DISTRIBUTION WIDTH 16.5 % (11.5-14.5); RED BLOOD CELL CT 4.44 /CUMM (4.20-5.40); WHITE BLOOD CELL COUNT 6.1 /CUMM (4.8-10.8)
[2016-12-24 00:44] LABS: GRANULOCYTE % 73.9 % (42.2-75.2)
[2016-12-24] MEDS ORDERED: PRILOSEC OTC20 M1 PO (02:44)
[2016-12-24] MEDS ORDERED: ZOFRAN ODT4 M1 SL (02:44)
[2016-12-24 05:54] VITALS: BP 138/78
== END 2016-12-24 05:55 ==
LOC: ERH 23:47
PROVIDERS: Pediatrics
DX: K52.9 Noninfective gastroenteritis and colitis, unspecified (principal); R10.13 Epigastric pain
CPT/HCPCS: 93005; 93010; 96374; 96375; J2405; J2550

== ENCOUNTER 2017-10-10 10:17 | Inpatient (IN) | payer OTHER ==
[~2017-10-10] VITALS: Ht 165.1 cm; Wt 57.8 kg
[~2017-10-10 10:17] MED LIST changes: +HYDROXYZINE HCL25 M2 PO; +NAPROSYN500 M1 PO; +PRILOSEC OTC20 M1 PO; +ZOFRAN ODT4 M1 SL
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
[2017-10-10 12:53] LABS: ABSOLUTE BASOPHIL COUNT 0 /CUMM (0.0-0.2); ABSOLUTE EOSINOPHIL COUNT 0.1 /CUMM (0.0-0.7); ABSOLUTE GRANULOCYTE CT 2.3 /CUMM (1.4-6.5); ABSOLUTE LYMPH COUNT 1.4 /CUMM (1.2-3.4); ABSOLUTE MONOCYTE COUNT 0.4 /CUMM (0.10-0.60); BASOPHIL % 0.2 % (0.0-2.0); EOSINOPHIL % 2.4 % (0-5); GRANULOCYTE % 53.2 % (42.2-75.2); HEMATOCRIT 37.3 % (37-47); MEAN CORPUSCULAR HGB 24.5 PG (27.0-31.0); MEAN CORPUSCULAR HGB CONC 31.3 G/DL (33.0-37.0); MEAN CORPUSCULAR VOLUME 78.2 FL (81.0-99.0); MEAN PLATELET VOLUME 9.4 FL (7.4-10.4); PLATELET COUNT 330 /CUMM (130-400); RBC DISTRIBUTION WIDTH 19.4 % (11.5-14.5); RED BLOOD CELL CT 4.77 /CUMM (4.20-5.40); WHITE BLOOD CELL COUNT 4.3 /CUMM (4.8-10.8)
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
[2017-10-10] MEDS ORDERED: METHADONE HCL5 MG PO (22:21)
[2017-10-10] MEDS ORDERED: OXYCODONE HCL5 M2 PO (22:22)
[2017-10-10] MEDS ORDERED: ATIVAN2 MG PO (22:22)
--- NOTE | 2017-10-11 15:14 | ED PSY CRISIS COLLATERAL NOTE ---
Collateral Note Collateral Note Family/Inform/Ahiley Contacts: Re eval by [employer] Sw to pt's room finds her sleeping and only lifting her eyebrows when sw is tried to engage her. Sw explained there were important questions that needed to be reviewed so we could move crisis eval forward. Pt did not engage beyond some movement in her bed. Pt's breakfast was near her but untouched and sw encouraged pt to eat something. At 11:45, Pt was heard engaging with RN around food. Pt was being loud, demanding and disrespectful to RN. Pt took breakfast which had been removed because it was lunch time and ate it. Pt then rested a short time and was given lunch which she eat. Pt was easier to engage after lunch and reported she might not have active husky but if she calls [facility] she can get it reactivated as she has done this before. Registration ran insurance again and finds it inactive. Pt given number and ID and called. Sw watched pt call , she Spoke with Nancy, who reported system down and call again. He agreed pt could get activated quickly when system is up. Pt reports she remains with S I and fear of using to many drugs therefore feels she needs to be inpt psych to be safe. Pt cannot contact for safety. She reports her father with whom she was staying will not allow her back until she receives tx. Pt has a boyfriend Bernard [phone] who she has been speaking with. Sw tried to call collateral in chart but number were not right. Pt now gives this new number and it goes to Bernard mcgarry. Message left for him to call. 3: 00pm Sw and pt completed call to [facility] [facility] spoke with Munira who , reports pts last insurance was therefore it could take 48 to 72 hours to become active. Pt was frustrated by this news but, was able to stay in control. Pt was frustrate and overwhelmed by DSS's extensive questions which, seemed to be trigger by Pt reporting she planned to make some money this year. Pt reporting she needs her methadone, not having it is making her ribeiro. Unclear if pt's methadone was verified at [facility]. Pt continues to report SI but, feeling she can maintain safety while in the hospital. Pt had her head down while on the phone with DSS reporting mood instability, irritable and asked sw for assistance. GURDEEP Petersen and Sw collaborating. Pt reporting to us that she attends [facility] and her last methadone dose was 95mg. Call to clinic finds her last dosed on October 09 at 30 mg. Sw reviewed Pt with MD Melissa. reviewed utox and notes he will decrease pt's methadone by 5mg as indicated in our policy for positive urine on Methadone. Sw reported to RN that MD had put order in for METHADONE 25mg. Pt informed of dose ordered , the policy and daily taper scheduled. Pt was agreeable. Collateral : Pt also notified that sw spoke with her male friend, Alber. Pt informed brenard would like to speak with her. Bernard reported pt has "real bad Drug problem." He also noted he also has one but is trying to be clean and helpful to pt and others in need. He noted pt can get ribeiro when her wishes are not immediately met or she can not find money for drugs. He reports he has known pt for a year and she has never tried to hurt herself that he knows of. He reports she talks about it when she does not get her way. She reports she will use extra drugs to suicide. he is aware she has mental health issues also. Pt to be held over for available bed and or reactivated insurance. Calls to other hospitals for available beds, seek active insurance. Pt with a sitter. Pt remains cooperative this afternoon.
--- NOTE | 2017-10-11 17:20 | IP CRISIS DIAG ASSESS PSYCH ---
Diagnostic Assessment Basic Assessment Insurance Authorization: Insurance #1: Insurance name: SELF-PAY Phone number: Policy number: Group number: Authorization number: Primary Care Physician: Patient's PCP: Patient Has No Primary Care Dr PCP's Phone Number: Patient's Quote: "I'm not feeling the same way about myself, I dont like myself ". Patient's Address: [address] [place] [address] Home Phone Number: [phone] Other Phone Number: Who Do You Live With? Father Marital Status: Primary Language? Irish Language(s) Spoken At Home: Irish Family/Informants Interviewed: Crisis tried to contact collateral - Jennifer Frost (daughter) [phone] & Bernard Germain but was unable to get through. Allergies - Coded Allergies: latex (Severe, ITCHY RASH 03/01/17) lactose (Severe, LACTOSE INTOLERANT 03/01/17) tramadol (Severe, ITCHING 03/01/17) Current Medications - Scheduled Medications Escitalopram Oxalate (Lexapro) 10 MG TABLET 3 TAB PO DAILY MENTAL HEALTH ( Reported) Entered as Reported by Thomas Leblanc on 12/14/16 1400 Last Taken: 10/10/17 Hydroxyzine Pamoate (Vistaril) 50 MG CAPSULE 1 CAP PO 4 TIMES/DAY MENTAL HEALTH (Reported) Entered as Reported by Thomas Leblanc on 12/14/16 1400 Last Taken: 10/10/17 Methadone HCl 5 MG TABLET 90 MG PO DAILY ADDICTION (Reported) Entered as Reported by Tory Fernandez on 10/10/172220 Last Taken: 10/09/17 Pantoprazole Sodium (Protonix) 40 MG TABLET.DR 1 TAB PO DAILY GI (Reported) Entered as Reported by Thomas Leblanc on 12/14/16 1400 Last Taken: 10/10/17 Quetiapine Fumarate (Seroquel) 200 MG TABLET 1 TAB PO QPM MENTAL HEALTH ( Reported) Entered as Reported by Thomas Leblanc on 12/14/16 1359 Last Taken: 10/09/17 Trazodone HCl 50 MG TABLET 1 TAB PO QPM SLEEP (Reported) Entered as Reported by Thomas Leblanc on 12/14/16 1400 Last Taken: 10/09/17 Scheduled PRN Medications Lorazepam (Ativan) 2 MG TABLET 1 TAB PO TIDPRN PRN ANXIETY (Reported) Entered as Reported by Tory Fernandez on 10/10/172221 Last Taken: 10/10/17 Oxycodone HCl 5 MG CAPSULE 1 CAP PO BIDP PRN PAIN (Reported) Entered as Reported by Tory Fernandez on 10/10/172221 Toxicology Screen Completed? Yes Results: positive Symptoms of Use: cocaine; PCP Past History Past Medical History Medical History: CARPAL TUNNEL PTSD [facility]V THROMBOSIS ANXIETY PANIC D.O GASTRITIS GASTRIC ULCER INSOMNIA OCD BULGING DISCS CERVICAL GERD Past Surgical History Surgical History LT ROTATOR CUFF SX TUBAL LIGATION Psychosocial History Strengths/Capabilities: Sheri is actively seeking treatement for her substance use and mental health. Physical Limitations (Interventions): Sheri reports her father does not want her living in the home anylonger. Psychiatric Treatment History Psych Treatment Psychiatric Treatment Yes Inpatient Treatment Yes Outpatient Treatment Yes Location of Treatment [facility] April 2017. Pt unable to remember other tx facilities. Reason for Treatment depression/anxiety Dates of Treatment April 2017 Response to Treatment Pt reports positive response to in-patient tx Diagnosis by History: Depression Opiate dependence Risk Factors: access to lethal means, high anxiety/distress, history of suicide atmpts, SA/MH hospitalized, substance abuse, isolate/no social support, limited support Substance Use/Abuse History Drug Use/Abuse minimum 12mo Hx Substances Used/Abused Yes Substance Used/Abused Other (list in comments) (PCP) First Use 42 years old Last Used unclear, reports using 3x total How much used/taken unclear, reports using 3x total How often unclear, reports using 3x total For how long less than one year Route of use inhalant Substance Abuse Treatment Substance Abuse Treatment Past Substance Abuse TX Yes Inpatient Treatment Yes Outpatient Treatment Yes Location of Treatment [facility] Reason for Treatment substance use (crack cocaine) Dates of Treatment April 2017 - [facility] - current Response to Treatment Pt reports doing well at [facility] inpatient Current Mental Status Mental Status Orientation: Person, Place, Situation Affect: Depressed, Flat Speech: Mumbled, Slurred, Soft Neuro-vegetative: Appetite Decreased, Energy Decreased, Sleep Disturbance Appearance Appearance- Dress/Hygiene: Pt presents sleeping in her bed in hospital scrubs. She appers to be disheveled and unkempt. Behaviors Thought Process: WNL Thought Content: Paranoid Memory: Impaired (difficult to assess ) Insight: Fair SI/HI Risk Assessment - Minimum 6mo History- Past Suicidal Ideation/Attempts Yes Current Suicidal Ideation/Att Yes Past Homicidal Ideation/Att: No Current Homicidal Ideation/Attempts No Degree of Intent: Thoughts/No Intent Danger To: Self Gravely Disabled: Poor Impulse Control, Poor Judgment Risk Factors: access to lethal means, high anxiety/distress, history of suicide atmpts, SA/MH hospitalized, substance abuse, isolate/no social support, limited support Lethality Ratin Needs/Init TX Plan/Goals: Psychiatric Evaluation Medication assessment Individual, Family and Group Meetings Coordinated Discharge Planning DSM5/PS Stressors/Medical Prob Diagnosis' (DSM 5, Stressors, Medical): F32.9 Unspecified Depression F14.20 Stimulant Use Disorder - Cocaine Type F10.20 Alcohol Use Disorder 

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
[2017-10-11 19:29] VITALS: BP 119/68
[2017-10-11 23:33] VITALS: BP 120/73
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
--- NOTE | 2017-10-12 11:53 | History & Physical ---
General Information and HPI MD Statement: I have seen and personally examined PETER ENRIQUEZ and documented this H&P. The patient is a 42 year old F who presented with a patient stated chief complaint of unsafe, depressed. Source of Information: patient Exam Limitations: no limitations History of Present Illness: 42-year-old female with past medical history significant for GERD, gastritis, SMV thrombosis, hypothyroidism, asthma, depression, anxiety who is admitted to Inpatient Psychiatry with feeling unsafe. Patient reports feeling very depressed and anxious. She also has a history of polysubstance use including cocaine, PCP. She is also everyday alcohol drinker lately has been drinking heavy amounts. She was somewhat confused upon my interview and could not provide a detailed history. She did not remember any of her medications names. She does complain of left shoulder pain where she had injury. She had some chills but denies any nausea, vomiting or urinary complaints. Denies any chest pain or shortness of breath, coughing. Allergies/Medications Allergies: Coded Allergies: latex (Severe, ITCHY RASH 03/01/17) lactose (Severe, LACTOSE INTOLERANT 03/01/17) tramadol (Severe, ITCHING 03/01/17) Home Med list Escitalopram Oxalate (Lexapro) 10 MG TABLET 3 TAB PO DAILY MENTAL HEALTH ( Reported) Hydroxyzine Pamoate (Vistaril) 50 MG CAPSULE 1 CAP PO 4 TIMES/DAY MENTAL HEALTH (Reported) Lorazepam (Ativan) 2 MG TABLET 1 TAB PO TIDPRN PRN ANXIETY (Reported) Methadone HCl 5 MG TABLET 90 MG PO DAILY ADDICTION (Reported) Oxycodone HCl 5 MG CAPSULE 1 CAP PO BIDP PRN PAIN (Reported) Pantoprazole Sodium (Protonix) 40 MG TABLET.DR 1 TAB PO DAILY GI (Reported) Quetiapine Fumarate (Seroquel) 200 MG TABLET 1 TAB PO QPM MENTAL HEALTH ( Reported) Trazodone HCl 50 MG TABLET 1 TAB PO QPM SLEEP (Reported) Past History Travel History Traveled to [place] past 21 day No Medical History Neurological: NONE EENT: NONE Cardiovascular: NONE Respiratory: asthma Gastrointestinal: peptic ulcer disease, GASTRITIS Hepatic: NONE Renal: NONE Musculoskeletal: sciatica, CARPAL TUNNEL C5/6 HERNIATED DISCS Psychiatric: anxiety, insomnia, opioid dependence, PANIC ATTACKS Endocrine: NONE Blood Disorders: SMV THROMBOSIS "CLOTTING DISORDER" Cancer(s): NONE PNEUMATIC DRUM SANDER/Reproductive: NONE Isolation History: Standard Tetanus Vaccine: 08/23/14 Surgical History Surgical History: non-contributory Past Family/Social History Family History Relations & Conditions if any FATHER Relation not specified for: FH: CAD (coronary artery disease) Psychosocial History Services at Home: None ETOH Use: occasional use Illicit Drug Use: UTD Review of Systems Review of Systems Constitutional: Reports: see HPI. EENTM: Reports: see HPI. Cardiovascular: Reports: see HPI. Respiratory: Reports: see HPI. GI: Reports: see HPI. Musculoskeletal: Reports: see HPI. Skin: Reports: see HPI. Neurological/Psychological: Reports: see HPI. Exam & Diagnostic Data Last 24 Hrs of Vital Signs/I&O Vital Signs Date Time Temp Pulse Resp B/P B/P Pulse O2 O2 Flow FiO2 Mean Ox Delivery Rate 10/11 2333 99.2 92 20 120/73 10/11 1929 98.2 98 119/68 10/11 1929 98.2 98 119/68 10/11 1853 98.5 97 20 128/71 98 Room Air 10/11 1742 98.8 104 16 126/72 98 Room Air 10/11 1413 97.8 98 20 117/79 98 Room Air Intake & Output 10/12 1600 10/12 0800 10/12 0000 Intake Total Output Total Balance Patient 127 lb Weight Physical Exam General Appearance Alert, Oriented X3, Cooperative, No Acute Distress Skin No Rashes HEENT PERRLA Neck Supple Cardiovascular Regular Rate, Normal S1, Normal S2 Lungs Clear to Auscultation Abdomen Normal Bowel Sounds, Soft, No Tenderness Neurological Cranial Nerves II through XII: Intact Extremities No Edema Last 24 Hrs of Labs/Roderick: Laboratory Tests 10/10 10/10 1246 1245 Chemistry Sodium (137 - 145 mmol/L) 144 Potassium (3.5 - 5.1 mmol/L) 4.3 Chloride (98 - 107 mmol/L) 102 Carbon Dioxide (22 - 30 mmol/L) 33 H Anion Gap (5 - 16) 9 BUN (7 - 17 mg/dL) 15 Creatinine (0.5 - 1.0 mg/dL) 0.7 Estimated GFR (>60 ml/min) > 60 BUN/Creatinine Ratio (7 - 25 %) 21.4 Glucose (65 - 99 mg/dL) 77 Hemoglobin A1c (4.2 - 5.8 %) 5.7 Calcium (8.4 - 10.2 mg/dL) 9.8 Total Bilirubin (0.2 - 1.3 mg/dL) 0.5 Direct Bilirubin (< 0.4 mg/dL) 0.5 H AST (14 - 36 U/L) 21 ALT (9 - 52 U/L) 25 Alkaline Phosphatase (<127 U/L) 62 Total Protein (6.3 - 8.2 g/dL) 7.0 Albumin (3.5 - 5.0 g/dL) 3.9 Triglycerides (<150 mg/dL) 102 Cholesterol (<200 MG/DL) 137 LDL Cholesterol, Calc (65 - 129 mg/dL) 66 HDL Cholesterol (40 - 60 mg/dL) 51 Cholesterol/HDL Ratio (0.00 - 4.23 %) 3 Free T4 (0.64 - 1.79 ng/dL) 1.37 Total T3 (0.97 - 1.69 ng/mL) 1.30 TSH &T3 &Free T4 Intrp (0.270 - 4.20 uIU/mL) 0.230 L Hematology CBC w Diff NO MAN DIFF REQ WBC (4.8 - 10.8 /CUMM) 4.3 L RBC (4.20 - 5.40 /CUMM) 4.77 Hgb (12.0 - 16.0 G/DL) 11.7 L Hct (37 - 47 %) 37.3 MCV (81.0 - 99.0 FL) 78.2 L MCH (27.0 - 31.0 PG) 24.5 L MCHC (33.0 - 37.0 G/DL) 31.3 L RDW (11.5 - 14.5 %) 19.4 H Plt Count (130 - 400 /CUMM) 330 MPV (7.4 - 10.4 FL) 9.4 Gran % (42.2 - 75.2 %) 53.2 Lymphocytes % (20.5 - 51.1 %) 34.0 Monocytes % (1.7 - 9.3 %) 10.2 H Eosinophils % (0 - 5 %) 2.4 Basophils % (0.0 - 2.0 %) 0.2 Absolute Granulocytes (1.4 - 6.5 /CUMM) 2.3 Absolute Lymphocytes (1.2 - 3.4 /CUMM) 1.4 Absolute Monocytes (0.10 - 0.60 /CUMM) 0.4 Absolute Eosinophils (0.0 - 0.7 /CUMM) 0.1 Absolute Basophils (0.0 - 0.2 /CUMM) 0 Toxicology Methadone Screen (>300 NG/ML) > 735 H Barbiturate Screen (>200 NG/ML) 65 Ur Phencyclidine Scrn (>25 NG/ML) > 72.00 H Amphetamines Screen (>1000 NG/ML) < 100 U Benzodiazepines Scrn (>200 NG/ML) < 85 Urine Cocaine Screen (>300 NG/ML) > 1000 H Urine Cannabis Screen (>50 NG/ML) < 5.00 Serum Alcohol (<10 MG/DL) < 10.0 Urines Urine Test NEGATIVE Assessment/Plan Assessment: 42-year-old female with past medical history significant for GERD, gastritis, SMV thrombosis, hypothyroidism, asthma, depression, anxiety admitted to Inpatient Psychiatry with worsening depression, suicidal ideation but no plan and worsening and ID. Patient has this documented history of SMV thrombosis but I do not see that she is on any blood thinners. She does not remember anything about her medications. Patient's claim history does not mention anything about the blood thinner. I have told nursing staff at Inpatient Psychiatry to confirm her medication list. Her thyroid function shows she has low TSH but her T4 and T3 are all within normal limits. I do not see any levothyroxine and her medication list. The fact that her T4 and T3 are normal, I will not start her on any levothyroxine at present. She can follow-up with her primary care doctor in future for that. Patient is ordered albuterol inhaler as needed. She has history of asthma but currently not in acute exacerbation. Patient is also on multivitamin, folate, thiamine and Ativan for history of alcohol use. For the psych management will be up to psychiatry for her psych issues As Ranked By This Provider Problem List: 1. Anxiety 2. Drug abuse 3. LT SHOULDER SUGERY 4. Suicidal ideation 5. Toothache 6. Gastritis 7. Depression Miscellaneous Miscellaneous Documentation Attending Case Discussed With: Leona Christian M.D. Primary Care Physician: Patient Has No Primary Care Dr Patient sees these Specialists psychiatry Level of Patient Care: [facility]
[2017-10-12 12:59] VITALS: BP 104/62
[2017-10-12 13:01] VITALS: BP 104/62
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
[2017-10-12 15:55] VITALS: BP 119/61
[2017-10-12 15:59] VITALS: BP 119/61
--- NOTE | 2017-10-12 17:42 | SOCIAL WORKER PROG NOTE PSYCH ---
Social Work Progress Note Progress Note 11:18am This narrative writer contacted Milagro at [facility] ([phone]) due to being unable to identify the patient's name on the [facility] website. Milagro stated that all / policy/last four of social match a last name of "Tonya." 4:15pm This narrative writer met with patient. Patient appeared very lethargic and had difficulty staying awake during this meeting. She identifed this as a side effect of the medications she had been given. Patient stated that she came to the hospital because "I didn't feel safe with myself." She identified stressors related to being a mother of six. She identified drug of choice as "beer, wine and Marijuana." She denied current SI and denied SI/HI/AH/VH. She agreed to inform staff of any concerns or if feeling unsafe. Patient expressed interest in referrals to rehabs and will discuss this furhter with a marriage and family social worker tomorrow as she was too tired today. This narrative writer asked patient if she has another last name other than "Geoff." Patient identified "Tonya" and stated that the only card listing this name is her EBT card which she left at a store. She stated that she will call her friend eva and ask her to pick it up and bring it tomorrow.
[2017-10-12 20:22] VITALS: BP 103/68
[2017-10-12 20:23] VITALS: BP 103/68
[2017-10-13 12:21] VITALS: BP 128/73
--- NOTE | 2017-10-13 14:10 | SOCIAL WORKER PROG NOTE PSYCH ---
Social Work Progress Note Progress Note I am covering for Jovana Sabillon LCSW today. Met with Sheri this afternoon, she was in the kitchen coloring. She was pleasant, cooperative - seemed to be less sedated than yesterday. She reported some SI feeling that she "doesn't like her life", and stated, "I don't like my life. I have no friends... don't like who I am. I have no job and I have made stupid choices." She stated she feels if she leaves here she will relapse again. She is homeless, has no place to live. She has been staying with her daughter Brianne - but cannot stay with her because she has [address]. She has a boyfriend of the past year - Bernard Germain , who she agreed to have come in for a family meeting. She has been receiving Methadone at [facility] for the past 3yrs - her counselor Shikha. She is not identifing any triggers to relapse. She has been using crack cocaine $300/day 7-8 grams starting October 2016. She has been drinking alcohol - 4 pack of wine coolers, and (2) pints Ebony's. She rates anxiety 7/10 (worst) and depression 10/10. She reports 2 suicide attempts but can't remember details. She stated she signed herself out of [facility] in 2016 - reports she was there for 1 month due to SI and drug use. She wishes she didn't sign her self out AMA. She relapsed right after discharge. She reports longest period of sobriety is 1 year - relapsed October 2016. She stated she stayed clean by attending groups at [facility]. She has only 2 rehabs - [facility] 2yrs ago, [facility] many years ago. She is interested in a rehab. She signed ESTHER's for rehabs - [facility], [facility]. Need to fax clinical to rehabs and referral to [facility].
[2017-10-13 15:52] VITALS: BP 124/74
--- NOTE | 2017-10-13 15:56 | CP SOUTH PROGRESS NOTE PSYCH ---
Psych (Inpt) Progress Note Progress Note Include the following elements, when applicable: Involvement in the active treatment of the patient with behavioral observations of the patient and the patient's response to the treatment. Review of the ongoing treatment process in the context of the treatment plan. Indication of how multi-disciplinary staff members are carrying out the treatment plan. Plans for future interventions and recommendations for revision of the treatment plan. Liaison with other physicians/providers. Progress Note: I discussed this patient's progress to date, current mental status, treatment process in the context of the treatment plan, and discharge planning with staff/ team in the daily morning inpatient team meeting. I also met with the patient myself in individual session. A total of 25 minutes was spent with the patient with more than 50% spent in counseling and/or coordination of care. SUBJECTIVE: "I feel real bad. I hate looking upon my life and seeing what it is. The worst thing is that I did it to myself." OBJECTIVE: Current Medications Sig/Eusebio Start time Last Medication Dose Route Stop Time Status Admin Acetaminophen 650 MG Q6P PRN 10/11 1645 AC 10/12 PO 1122 Al Hydroxide/Mg 30 ML Q4-6 PRN PRN 10/11 1645 AC Hydroxide PO Albuterol Sulfate 2 PUF Q4 PRN 10/11 2330 AC 10/12 INH 1124 Benzocaine 1 JAYME Q6-PRN PRN 10/11 2245 AC 10/13 TOP 0655 Benztropine Mesylate 1 MG Q6P PRN 10/11 1645 AC PO Benztropine Mesylate 1 MG Q6P PRN 10/11 1645 AC IM Diphenhydramine HCl 50 MG Q6P PRN 10/11 2300 DC 10/11 PO 2331 Escitalopram Oxalate 20 MG 10/14 0800 AC PO Escitalopram Oxalate 10 MG ONCE ONE 10/13 1445 DC PO 10/13 1446 Escitalopram Oxalate 10 MG DAILY 10/12 1000 AC 10/13 PO 1110 Folic Acid 1 MG DAILY@0800 10/11 1645 DC 10/13 PO 10/13 0801 1111 Gabapentin 400 MG Q6-PRN PRN 10/13 1445 AC 10/13 PO 1442 Gabapentin 300 MG Q6P PRN 10/11 1645 DC 10/13 PO 0626 Haloperidol 5 MG Q6P PRN 10/11 2300 AC 10/11 PO 2330 Haloperidol 5 MG Q6P PRN 10/11 1645 AC IM Hydroxyzine HCl 50 MG Q6-PRN PRN 10/12 1645 AC 10/13 PO 1116 Hydroxyzine HCl 50 MG FOUR TIMES A DAY 10/12 1000 DC 10/12 PO 1333 Ibuprofen 800 MG Q6P PRN 10/12 1230 AC 10/13 PO 0625 Lorazepam 2 MG Q6P PRN 10/11 2300 DC 10/11 PO 2329 Lorazepam 2 MG Q6P PRN 10/11 1645 AC IM Lorazepam 2 MG Q2P PRN 10/11 1645 AC PO Lorazepam 1 MG Q2P PRN 10/11 1645 AC PO Magnesium Hydroxide 30 ML AT BEDTIME PRN 10/11 1645 AC PO Methadone HCl 5 MG ONCE ONE 10/15 0800 AC PO 10/15 0801 Methadone HCl 10 MG ONCE ONE 10/14 0800 AC PO 10/14 0801 Methadone HCl 15 MG ONCE ONE 10/13 0800 DC 10/13 PO 10/13 0801 1112 Multivitamins 1 TAB DAILY@0800 10/11 1645 AC 10/13 PO 1111 Nicotine 14 MG DAILY 10/12 1649 AC 10/13 TOP 1110 Omeprazole 40 MG DAILY AC 10/12 0700 AC 10/13 PO 0604 Quetiapine Fumarate 200 MG 22010/12 2200 AC 10/12 PO 2116 Thiamine HCl 100 MG DAILY@0800 10/11 1645 DC 10/13 PO 10/13 0801 1111 Trazodone HCl 50 MG AT BEDTIME 10/13 2200 AC PO Trazodone HCl 50 MG AT BEDTIME NEED.. 10/11 2300 DC PO Vital Signs Date Time Temp Pulse Resp B/P B/P Pulse O2 O2 Flow FiO2 Mean Ox Delivery Rate 10/13 1221 100 128/73 10/12 2022 98.2 86 103/68 10/12 2021 98.2 86 103/68 10/12 1559 88 119/61 10/12 1555 88 119/61 ASSESSMENT: Patient presents today calm and cooperative. Although she had appeared very fatigued earlier this morning, by the time I visited with her at approximately 2 PM today, she was awake and alert. She reports high levels of depression and anxiety. She reports a history of suicidal attempts in the past, however states that "I feel too safe here." She denies a plan or intent to harm herself at this time. She would like to go to a residential rehab. At the time of this writing at almost 4:00 in the afternoon, the patient is apparently happily engaged in a recreational organized activity on the unit, laughing and apparently enjoying herself. Denies homicidal ideation, auditory hallucinations, paranoid ideation. She reports seeing "shadows." States "my mind is so polluted." Speech is well articulated, goal-directed, average in rate, volume and tone. The patient understands the risks/benefits/side effects of the medication and is agreeable to continue taking them. PLAN: Slow progress. 1. Increase Lexapro to 20 mg daily for continued depression and anxiety. 2. Increase gabapentin as needed to 400 mg for continuing breakthrough anxiety. 3. Patient has requested additional lorazepam. I explained to her that there was CIWA triggered Lorazepam ordered, and that she would receive Lorazepam if indicated. She expressed her unhappiness with this decision. 4. Continue methadone taper. 5. Consider disposition to residential rehab, if possible to obtain a bed. Continue with other current management as patient is improving. Continue to provide support and encouragement.
[2017-10-13 16:25] VITALS: BP 124/74
[2017-10-13 19:55] VITALS: BP 135/80
[2017-10-13 19:56] VITALS: BP 135/80
[2017-10-14] VITALS (8 sets, daily range): BP systolic 114–140; BP diastolic 53–72
--- NOTE | 2017-10-14 11:36 | CP SOUTH PROGRESS NOTE PSYCH ---
Psych (Inpt) Progress Note Progress Note Include the following elements, when applicable: Involvement in the active treatment of the patient with behavioral observations of the patient and the patient's response to the treatment. Review of the ongoing treatment process in the context of the treatment plan. Indication of how multi-disciplinary staff members are carrying out the treatment plan. Plans for future interventions and recommendations for revision of the treatment plan. Liaison with other physicians/providers. Progress Note: Stated that she feels depressed, with no plan to harm herself its out there that I worry and notes stressors in the real world. Has spoken with her boyfriend but with no other family members, stating they are avoiding her due to her drug use. We discussed that once family sees she is putting effort into remaining sober, they would be more apt to reach out, that she likely burned bridges in the past; she was receptive, saying I didnt think of that and we also discussed that she can speak with the team about a family meeting closer to discharge, which she appeared to perk up about. She is sedated but stated that she prefers this to experiencing more withdrawal sx. She wanted no med changes. Her energy has been fair in context of her withdrawal. MSE: slim woman, younger appearing than stated age. Fair to poor grooming. sleepy but able to perk up when discussing her family and future for a few minutes. Her mood is depressed and affect is constricted and congruent. Her thinking is coherent and no delusions are elicited. She endorses depression and recently self harm thoughts but no active plans and no intent. Her judgment is fair and insight is fair. A: 42 year old woman w/ hx depressive sx and significant drug use d/o. She appears future oriented and motivated to remain sober despite her sedation and depressed affect. Risk factors are withdrawal sx, drug use and suicidal thoughts in addition to past attempts, in addition to depression Plan: Address dynamic risk factors w/ current meds, she did not want any med changes. Address sedation with routine monitoring, she does not feel over sedated and is able to be alert when asked. She has CIWA scale and taper so anticipate she will continue to perk up throughout the weekend. Discussed family meeting if possible closer to discharge and discussing w/ SW her substance abuse tx options once stabilized.
[2017-10-15 08:28] VITALS: BP 125/64
[2017-10-15 08:31] VITALS: BP 125/64
[2017-10-15 12:11] VITALS: BP 115/56
[2017-10-15 12:12] VITALS: BP 115/56
--- NOTE | 2017-10-15 14:44 | CP SOUTH PROGRESS NOTE PSYCH ---
Psych (Inpt) Progress Note Progress Note Include the following elements, when applicable: Involvement in the active treatment of the patient with behavioral observations of the patient and the patient's response to the treatment. Review of the ongoing treatment process in the context of the treatment plan. Indication of how multi-disciplinary staff members are carrying out the treatment plan. Plans for future interventions and recommendations for revision of the treatment plan. Liaison with other physicians/providers. Progress Note: Stated that she feels depressed, with occasional SI but no plan and not overwhelming. Had a number of complaints congestion, feeling hot, diarrhea, pain from her tooth, and not having seroquel in day time. Explained that many of her sx are due to withdrawal and hopefully should improve in the next few days. She wants oxycodone when she is tapered off her methadone but I attremped to explain that this would likely be unrealistic and that a pain clinic could unlikely do this for her. She stated that she is trying to get better and move forward. Has been speaking with her boyfriend and father, and has had no visitors recently. MSE: slim woman, younger appearing than stated age. Fair to poor grooming. Anxious, somewhat sweaty, uncomfortable appearing at times, but in the milieu appeared relaxed and engaged with peers. Speech is normal. Her mood is down and affect is congruent but reactive. She admits to occasional si which are passing. Her thinking is coherent overall. There are no gross delusions elicited, no hallucinations. Her judgment is fair and insight is fair. A: 42 year old woman w/ hx depressive sx and significant drug use d/o. She appears future oriented and motivated to remain sober despite her sedation and depressed affect. Risk factors are withdrawal sx, drug use and suicidal thoughts in addition to past attempts, in addition to depression. Today she appears more alert and experiencing some minor withdrawal sx, which she prefers to medicate and sleep away. Plan: Address dynamic risk factors w/ med adjustments, education. Changed seroquel to 100mg at 4pm and 100mg at night time, she stated she always takes it in the day time but agreed to this change for now. She wanted haldol for anxiety /agitation and I explained to her that it was similar to seroquel but she stated it was helpful when she took it last, will maintain as less frequent dosing. Will add in nasonex for congestion which is notable. She has an unrealistic expectation about being put back on her pain meds which I attempted to explain to her, will need ongoing education.
[2017-10-15 15:34] VITALS: BP 108/51
[2017-10-15 19:31] VITALS: BP 126/66
[2017-10-16] VITALS (7 sets, daily range): BP systolic 110–122; BP diastolic 64–79
--- NOTE | 2017-10-16 08:07 | CP SOUTH PROGRESS NOTE PSYCH ---
Psych (Inpt) Progress Note Progress Note Vital Signs Vital Signs Date Time Temp Pulse Resp B/P B/P Pulse O2 O2 Flow FiO2 Mean Ox Delivery Rate 10/16 1557 96 112/64 10/16 1227 99 110/73 10/16 1222 99 110/73 Mental Status Update: alert, reported some withdrawal sx, less depressed, denied thoughts of suicide c/o shoulder pain Speech is normal. affect is congruent thinking is coherent overall. There are no gross delusions elicited, no hallucinations. A: A 42-year-old woman w/ hx depressive sx and significant drug use d/o. Plan: One dose of methadone 5mg because of mild reidual withdrawal Voltaren PRN for shoulder pain Haloperidol 5 MG Q6P PRN 10/11 2300 DC 10/15 PO 1441 Haloperidol 5 MG Q6P PRN 10/11 1645 AC Hydroxyzine HCl 50 MG Q6-PRN PRN 10/12 1645 AC 10/15 PO 1442 Ibuprofen 800 MG .STK-MED ONE 10/15 0834 DC PO 10/15 0835 Ibuprofen 800 MG Q6P PRN 10/12 1230 AC 10/15 PO 2226 Lorazepam 2 MG Q6P PRN 10/11 1645 AC IM Lorazepam 2 MG Q2P PRN 10/11 1645 AC Lorazepam 1 MG Q2P PRN 10/11 1645 AC PO Magnesium Hydroxide 30 ML AT BEDTIME PRN 10/11 1645 AC Multivitamins 1 TAB DAILY@0800 10/11 1645 AC 10/15 PO 0831 Nicotine 14 MG DAILY 10/12 1649 AC 10/15 Omeprazole 40 MG DAILY AC 10/12 0700 AC 10/16 PO 0620 Quetiapine Fumarate 100 MG AT BEDTIME 10/15 2200 AC 10/15 Quetiapine Fumarate 100 MG 1600 10/15 1600 AC 10/15 Quetiapine Fumarate 200 MG 2200 10/12 2200 DC 10/14 PO 2136 Sodium Chloride 2 SPRAY Q6P PRN 10/15 1445 AC 10/15 RAF 1625 Trazodone HCl 50 MG AT BEDTIME 10/13 2200 AC 10/15 PO 2222 Vital Signs Date Time Temp Pulse Resp B/P B/P Pulse O2 O2 Flow FiO2 Mean Ox Delivery Rate 10/15 1930 98.9 84 126/66 10/15 193 98.9 84 126/66 10/15 1534 96 108/51 10/15 1534 100 108/51 10/15 1212 92 115/56 10/15 1211 92 115/56 10/15 0831 98.3 87 125/64 18 0828 98.3 87 125/64
--- NOTE | 2017-10-16 17:43 | SOCIAL WORKER PROG NOTE PSYCH ---
Social Work Progress Note Progress Note [facility] auth entered under patient's last name "Tonya": Member Name Member ID Member Subscriber Name Subscriber ID PETER VENTURA [id number] PETER VENTURA [id number] Pended Authorization # Client Authorization # Type of Request [id number] CONCURRENT Date of Admission/ Start of Services Requested From Submission Date 10/11/2017 10/16/2017 10/16/2017 Level of Service Type of Service Level of Care Type of Care INPATIENT/OC Mental Health Inpatient [facility] - Inpatient Hospital
--- NOTE | 2017-10-16 18:14 | SOCIAL WORKER PROG NOTE PSYCH ---
Social Work Progress Note Progress Note 2:10pm This chart writer met with patient. Patient stated that she spoke with her friend about her EBT card (card with patient's other last name listed on it, "Tonya "), however, he friend did not bring her the card. Patient described her mood as "not good" and experiencing decreased energy which she believes may be due to the decreased dose of Methadone. Patient expressed interest in entering rehab/ inpatient treatment. She was agreeable to attending an IOP if inpatient is not immediately avaialable upon discharge. Patient denied SI/HI/AH/VH.
[2017-10-17 12:30] VITALS: BP 114/64
[2017-10-17 12:32] VITALS: BP 114/64
--- NOTE | 2017-10-17 14:23 | CP SOUTH PROGRESS NOTE PSYCH ---
Psych (Inpt) Progress Note Progress Note Vital Signs Date Time Temp Pulse Resp B/P B/P Pulse O2 O2 Flow FiO2 Mean Ox Delivery Rate 10/17 1232 96 114/64 10/17 1230 96 114/64 10/16 2010 99.3 96 11167 10/16 2009 99.3 96 11167 10/16 1557 96 112/64 Mental Status Update: The patient was alert, and oriented to time place and person. She continues to report mild withdrawal symptoms. She reported that she is still feeling depressed but with relative improvement compared to the previous days. She denied thoughts of suicide She did not bring up any complaints of pain today I had a speech was normal/not pressured, not slurred affect is congruent , her thinking was coherent She denied hallucinations. There were no delusions A: A 42-year-old single Black female who was admitted to the inpatient psychiatric unit at [facility] with depressive sx and significant drug use d/o. She may be homeless at the present time and she says that she is interested in going to a residential rehabilitation place. Plan: Repeat one dose of methadone 5mg because of mild reidual withdrawal
[2017-10-17 15:43] VITALS: BP 132/72
[2017-10-17 15:54] VITALS: BP 132/75
--- NOTE | 2017-10-17 16:30 | SOCIAL WORKER PROG NOTE PSYCH ---
Social Work Progress Note Progress Note 11:40am This senior underwriter met with patient. She described her mood as "alright". She stated that she is unable to stay with her boyfriend due to the fact that he is already living with family members. Patient stated that she had been staying with her daughter, Apoorva Mckee, prior to this admission and plans to return there upon discharge. This senior underwriter and patient discussed scheduling a family meeting. She would like to invite her boyfriend, her daughter and her father. All three were called. Her boyfriend stated that he would be available tomorrow as well as her father. Her daughter became upset when she learned that the patient's boyfriend would be attending. Patient decided that she did not want her daughter to attend. The family meeting is scheduled for 10:30am, which her father was informed of. Patient stated that she will contact her boyfriend to inform of the time and her daughter to inform that a separate meeting will take place between the daughter, patient, this senior underwriter and psychiatrist. Patient had been provided with the phone numbers for [facility] and [facility]. She stated that she called these numbers and left voicemails. Due to patient's two last names, "Tonya" and "Geoff," patient signed ESTHER's for the following programs with her name listed as Sheri Tellez ([place]) (as discussed with Tirso De Anda LCSW): - [facility] - [facility] - [facility] - [facility] - ESTHER's were also signed for Bernard Germain (boyfriend), Sujata Mckee (daughter) and Daniel Frost Sr. (father). Patient stated that if she is unable to enter rehab immediately upon discharge, she would go to the [facility] at the [facility] until a bed is available.
[2017-10-17 19:43] VITALS: BP 124/64
[2017-10-17 23:06] VITALS: BP 128/73
[2017-10-18 07:45] VITALS: BP 131/68
--- NOTE | 2017-10-18 08:43 | CP SOUTH PROGRESS NOTE PSYCH ---
Psych (Inpt) Progress Note Progress Note Vital Signs Date Time Temp Pulse B/P Pulse O2 FiO2 10/18 0745 97.2 81 131/68 10/17 2306 91 128/73 10/17 1943 98.5 92 124/64 The patient's progress and treatment plan were reviewed in the multidisciplinary treatment team meeting. The disciplines involved in the team meeting: RN, SILO ERECTOR, group and activity therapists, and psychiatrist Mental Status Examination: The patient was alert, and oriented to time place and person. She denied withdrawal symptoms this morning. She reported that her mood remains down, depressed, but denied feeling hopeless or worthless, denied wishing , and denied thoughts of suicide. Her speech was normal/not pressured, not slurred Her affect was of good range, and congruent. She was coherent. She denied hallucinations. There were no delusions. She denied thoughts of violence or homicide Assessment: Sheri is a 42-year-old single Black female who was admitted to the inpatient psychiatric unit at [facility] on 10/11/2017 with feelings of depression ( 10/10), anxiety (10/10), feeling hopeless and suicidal, but not having a plan. She reported trouble sleeping, poor concentration and poor appetite. Pt reports at least 2 prior suicide attempts (? reliability of this report). The precipitant appeared to be homelessness and drug withdrawals. Today, Sheri was agreeable to see how she does without the 5 mg of methadone she got the past couple of days She asked for an increase in Seroquel because she feels (and seemed) down Treatment Plan Update: Increase Seroquel to 50 mg in AM, 100 mg at 4PM and 100 mg at bedtime Continue same other medications
--- NOTE | 2017-10-18 12:29 | SOCIAL WORKER PROG NOTE PSYCH ---
Social Work Progress Note Progress Note Sheri called [facility] (with my assitance) - Spoke with [employer] [facility] rep. apparently Sheri DID call to apply on 10/11/17(while in ED), application ID#[id number]. She is eligible - uncertain when will be active. Her TEMP ID is [id number]. Will be retro active 09/28/17. Sheri stated she called [facility] and [facility] yesterday 10/17/17 and left a vm. Informed her she needs to call and speak with [facility] for a screening. Advised her to call today. Asked [facility] to have PPD ordered/placed. Dr. Merchant will order. Faxed clinical to following 10/18/17: [facility] - Fax confirmations in chart (back) [facility] - Faxed - waiting for confirmation ([place]) [facility] - Fax confirmation received 10/18/17 12:21pm [facility] - waiting for confirmation ([place]) [facility] - waiting for confirmation ([place])
[2017-10-18 12:41] VITALS: BP 111/63
--- NOTE | 2017-10-18 16:18 | SOCIAL WORKER PROG NOTE PSYCH ---
See Addendum Social Work Progress Note Progress Note 1:35pm This mortgage loan underwriter met with patient. She stated that she spoke with Margaret Meng) earlier today regarding referrals to inpatient programs. Patient complained of left shoulder pain which she believes has increased due to the decrease in the Methadone dose. Patient stated that she continues to call [facility] and [facility] and has been unable to reach them. She plans to continue to call them this afternoon and evening. Patient denied SI/HI/AH/VH.
[2017-10-18 21:41] VITALS: BP 110/69
[2017-10-19 08:16] VITALS: BP 109/61
[2017-10-19 12:00] VITALS: BP 97/53
--- NOTE | 2017-10-19 13:58 | CP SOUTH PROGRESS NOTE PSYCH ---
Psych (Inpt) Progress Note Progress Note Vital Signs Date Time Temp Pulse Resp B/P B/P O2 10/19 1200 98 97/53 10/19 1103 102 104/55 10/19 0835 85 109/61 10/19 0816 97.2 85 109/61 The patient's progress and treatment plan were reviewed in the multidisciplinary treatment team meeting. The disciplines involved in the team meeting: RN, FLUE CLEANER, OTR/L, and psychiatrist Mental Status Examination: The patient was alert, and oriented to time place and person. Today the patient is back to reporting some withdrawal symptoms. She reported that her mood was better and that she may be discharged today provided that her daughter allows her to stay with her while she is waiting for a bed at the residential rehabilitation. She denied feeling hopeless or worthless, denied wishing , and denied thoughts of suicide. Her speech was normal/not pressured, not slurred Her affect was of good range, and congruent. She was coherent. She denied hallucinations. There were no delusions. She denied thoughts of violence or homicide After meeting with her she was observed in the common area in the front of the nursing station being verbally abusive towards the nurses. She is immature and impulsive. Assessment: Sheri is a 42-year-old single Black female who was admitted to the inpatient psychiatric unit at [facility] on 10/11/2017 with feelings of depression ( 10/10), anxiety (10/10), feeling hopeless and suicidal, but not having a plan. She reported trouble sleeping, poor concentration and poor appetite. Pt reports at least 2 prior suicide attempts (? reliability of this report). The precipitant appeared to be homelessness and drug withdrawals. Today, Sheri was in better spirits and asking about discharge In the afternoon she came to my office and reported that her daughter may not allow her to stay with her but that she has 2 friends any [place] where she can stay with and [facility] Treatment Plan Update: May be discharged with follow up with apt then residential rehab
[2017-10-19] MEDS ORDERED: NICOTINE PATCH1 EAC2 TOP (14:23)
[2017-10-19] MEDS ORDERED: VENTOLIN HFA18 GM INH (14:23)
[2017-10-19] MEDS ORDERED: LEXAPRO10 M1 PO (14:23)
[2017-10-19] MEDS ORDERED: QUETIAPINE FUM100 M1 PO (14:23)
--- NOTE | 2017-10-19 14:24 | Patient Discharge Instructions ---
Psych Discharge Inst General Discharge Information Reason for Admission: worsening depression and suicidal ideation. Psy Discharge Primary Diag+ Unspecified Depressive DO Opioid Use DO Psy Discharge Secondary Diag+ Stimulant Use DO Cannabis Use DO Summary Tests/Major Procedures Lab Cholesterol 137 MG/DL 10/10/17 1245 Cholesterol/HDL Ratio 3 % 10/10/17 1245 HDL Cholesterol 51 mg/dL 10/10/17 1245 Hemoglobin A1c 5.7 % 10/10/17 1245 LDL Cholesterol, Calc 66 mg/dL 10/10/17 1245 Triglycerides 102 mg/dL 10/10/17 1245 Methadone Screen > 735 NG/ML H 10/10/17 1246 Ur Phencyclidine Scrn > 72.00 NG/ML H 10/10/17 1246 Urine Cocaine Screen > 1000 NG/ML H 10/10/17 1246 Studies Pending at DC: None Patient Instructions Contact Information Your Psychiatrist on [facility] was Shonda FINK,Walter * If you are experiencing an emergency related to this hospitalization, please call [phone] to contact the treating psychiatrist or the psychiatrist-on- call. * To Request a copy of your medical records, please contact the Medical Records Department at [phone]. * To request results of studies pending at the time of discharge, please call [phone]. * Continue your Medications until directed to stop by your Healthcare provider. General Medication Information Please continue to take your new medications and your continued home medications , unless otherwise indicated on your discharge medication list, or unless directed by your MD or CHEMICAL PROCESSING EQUIPMENT REPAIRER to stop them. Special Instructions Diet Regular Activity As Tolerated Other Inst/Recommendations Follow up with your Mobile Architect - Tobacco Use Treatment Offered Post DC Medications Offered: Script Given-See Med List Post DC Tobacco Treatment Plan: Refused Tobacco Tx Pgm - EtOH/Drug Use D/O Treatment Offered Post DC Medications Offered: Med Not Indicated for D/O Post DC EtOH/SubAbuse TX Plan: Other SubAbuse/Dual Pgm Metabolic Screening Patient on a neuroleptic(s) . Enter below results for Hemoglobin A1C, and lipid panel if obtained during the last 365 days. BMI: 21.100 Blood Pressure: 97/53 Laboratory Results From [facility] (If applicable): Lab Cholesterol 137 MG/DL 10/10/17 1245 Cholesterol/HDL Ratio 3 % 10/10/17 1245 HDL Cholesterol 51 mg/dL 10/10/17 1245 Hemoglobin A1c 5.7 % 10/10/17 1245 LDL Cholesterol, Calc 66 mg/dL 10/10/17 1245 Triglycerides 102 mg/dL 10/10/17 1245 Advance Directives Does the Patient have Medical Advance Directives No/Refused further info Does Pt have Psychiatric Advance Directives? No/Refused further info Does Patient have a Designated Surrogate Decision Maker: No Information About Psychiatric Advance Directives Provided? Refused Discharge Plan Post Hospital Treatment Plan: [facility]
--- NOTE | 2017-10-19 14:29 | DISCHARGE SUMMARY REPORT-PSYCH ---
Visit Information Visit Dates/Diagnosis' Admission Date: 10/11/17 Discharge Date: 10/20/17 Reason for Admission: worsening depression and suicidal ideation. Psy Discharge Primary Diag: Unspecified Depressive DO Opioid Use DO Psy Discharge Secondary Diag: Stimulant Use DO Cannabis Use DO Hospital Course Significant Lab Findings: Lab Cholesterol 137 MG/DL 10/10/17 1245 Cholesterol/HDL Ratio 3 % 10/10/17 1245 HDL Cholesterol 51 mg/dL 10/10/17 1245 Hemoglobin A1c 5.7 % 10/10/17 1245 LDL Cholesterol, Calc 66 mg/dL 10/10/17 1245 Triglycerides 102 mg/dL 10/10/17 1245 Methadone Screen > 735 NG/ML H 10/10/17 1246 Ur Phencyclidine Scrn > 72.00 NG/ML H 10/10/17 1246 Urine Cocaine Screen > 1000 NG/ML H 10/10/17 1246 Course Complications: The patient did not have any complications while she was in the inpatient psychiatric unit. The patient reported to 1 of the nurses that she thinks that there is a tampon stuck in her vagina and gynecology consult was called in however the patient decided to leave before the ritual circumciser came to see her and she was instructed to schedule a follow-up appointment with her ritual circumciser as an outpatient Consultations: The patient's was seen by lan engineer/hospitalist while she was in the inpatient psychiatric unit Allergies: Coded Allergies: latex (Severe, ITCHY RASH 03/01/17) lactose (Severe, LACTOSE INTOLERANT 03/01/17) tramadol (Severe, ITCHING 03/01/17) Hospital Course/TX Response: October 12, 2017: Patient appears overly fatigued at this time. Tox screen positive for methadone , cocaine, PCP. We will need to reevaluate tomorrow. For now, we will discontinue p.o. Ativan and Benadryl, hydroxyzine changed from a scheduled medication to as needed for anxiety. CIWA triggered ativan remains. 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 Additional information is needed from collaterals, including friend Ravin, her Father and 26 year old daughter. October 13, 2017: PLAN: Slow progress. 1. Increase Lexapro to 20 mg daily for continued depression and anxiety. 2. Increase gabapentin as needed to 400 mg for continuing breakthrough anxiety. 3. Patient has requested additional lorazepam. I explained to her that there was CIWA triggered Lorazepam ordered, and that she would receive Lorazepam if indicated. She expressed her unhappiness with this decision. 4. Continue methadone taper. 5. Consider disposition to residential rehab, if possible to obtain a bed. October 14, 2017: Address dynamic risk factors w/ med adjustments, education. Changed seroquel to 100mg at 4pm and 100mg at night time, she stated she always takes it in the day time but agreed to this change for now. She wanted haldol for anxiety/agitation and I explained to her that it was similar to seroquel but she stated it was helpful when she took it last, will maintain as less frequent dosing. Will add in nasonex for congestion which is notable. October 15, 2017: Changed seroquel to 100mg at 4pm and 100mg at night time, she stated she always takes it in the day time but agreed to this change for now. She wanted haldol for anxiety/agitation and I explained to her that it was similar to seroquel but she stated it was helpful when she took it last, will maintain as less frequent dosing. Will add in nasonex for congestion which is notable. October 16, 2017: A: A 42-year-old woman w/ hx depressive sx and significant drug use d/o. Plan: One dose of methadone 5mg because of mild reidual withdrawal Voltaren PRN for shoulder pain. October 17, 2017: Plan: Repeat one dose of methadone 5mg because of mild reidual withdrawal. October 18, 2017: Assessment: Sheri is a 42-year-old single Black female who was admitted to the inpatient psychiatric unit at [facility] on 10/11/2017 with feelings of depression (10/10), anxiety (10/10), feeling hopeless and suicidal, but not having a plan. She reported trouble sleeping, poor concentration and poor appetite. Pt reports at least 2 prior suicide attempts (? reliability of this report). The precipitant appeared to be homelessness and drug withdrawals. Today, Sheri was agreeable to see how she does without the 5 mg of methadone she got the past couple of days She asked for an increase in Seroquel because she feels (and seemed) down ; Treatment Plan Update: Increase Seroquel to 50 mg in AM, 100 mg at 4PM and 100 mg at bedtime; Continue same other medications October 19, 2017: Treatment Plan Update: May be discharged with follow up with apt then residential rehab The patient's progress and treatment plan were reviewed in the multidisciplinary treatment team meeting. The disciplines involved in the team meeting: RN, PROPOSAL EDITOR, OTR/L, Art Therapist, and psychiatrist October 20, 2017: Mental Status Examination: The patient was alert, and oriented to time place and person. She reported that her mood was "very good' and she did appear to be in very good spirits. She denied feeling hopeless or worthless, denied wishing , and denied thoughts of suicide. Her speech was normal/not pressured, not slurred. The patient was coherent. She denied hallucinations. There were no delusions. She denied thoughts of violence or homicide Assessment: Sheri is a 42-year-old single Black female who was admitted to the inpatient psychiatric unit at [facility] on 10/11/2017 with feelings of depression ( 10/10), anxiety (10/10), feeling hopeless and suicidal, but not having a plan. She reported trouble sleeping, poor concentration and poor appetite. The precipitant appeared to be homelessness and drug withdrawals. Today, Sheri was in very good spirits and denied thoughts of suicide for the third day in a row Treatment Plan Update: D/C home/to stay with daughter until she goes to rehab or [facility] Discharge HBIPS - Tobacco Use Treatment Offered Post DC Medications Offered: Script Given-See Med List Post DC Tobacco Treatment Plan: Levan Tobacco Tx Pgm - EtOH/Drug Use D/O Treatment Offered Post DC Medications Offered: Script Given-See Med List Post DC EtOH/SubAbuse TX Plan: Other SubAbuse/Dual Pgm Metabolic Screening - Screen if on a Neuroleptic Medication - Metabolic screening should include: - Blood Pressure, BMI, Glucose or Hgb A1c, & a - Lipid profile from within the past 365 days. Metabolic Screening BMI: 21.100 Blood Pressure: 108/62 Lab Albumin/Globulin Ratio 1.2 % 05/30/17 1710 Cholesterol 137 MG/DL 10/10/17 1245 Cholesterol/HDL Ratio 3 % 10/10/17 1245 HDL Cholesterol 51 mg/dL 10/10/17 1245 Hemoglobin A1c 5.7 % 10/10/17 1245 LDL Cholesterol, Calc 66 mg/dL 10/10/17 1245 Triglycerides 102 mg/dL 10/10/17 1245 Discharge Instructions General Discharge Information Multiple Neuroleptics: Not Applicable Discharge Diet Regular Discharge Activity As Tolerated DC Disposition: Home to daughter Referrals Ordered Referrals Provider Referral 10/20/17 For Groups: [[facility]] [address] [phone] Patient will go to the [facility] on [address] [place] [address] at 8:30am on, 10/20/17 to meet with a clinician in order to re-engage in IOP. Patient will speak with a nurse about having her PPD read. Patient has been referred to inpatient programs and will continue to call and follow up. Provider Referral 11/01/17 For Providers: [[facility]] For Groups: [[facility]] [facility] [address] [phone] This group meets every other Monday at 4pm. The next group meets on 11/01/17, at 4pm. Prescriptions Stop taking the following medications: Quetiapine Fumarate (Seroquel) 200 MG TABLET ORAL Every night Hydroxyzine Pamoate (Vistaril) 50 MG CAPSULE ORAL 4 TIMES A DAY Trazodone HCl (Trazodone HCl) 50 MG TABLET ORAL Every night Methadone HCl (Methadone HCl) 5 MG TABLET ORAL DAILY Lorazepam (Ativan) 2 MG TABLET ORAL THREE TIMES A DAY NEEDED as needed for ANXIETY Oxycodone HCl (Oxycodone HCl) 5 MG CAPSULE ORAL 2 x Daily as needed as needed for PAIN Continue taking these medications: Pantoprazole Sodium (Protonix) 40 MG TABLET. 1 Tablet ORAL DAILY Comments: Last Taken:PRILOSEC 40 MG ADMINISTERED 10/19/17 @ 0709 Time: Escitalopram Oxalate (Lexapro) 10 MG TABLET 3 Tablet ORAL DAILY Qty = 45 Comments: Last Taken:10/19/17 Time:0834 This prescription has been renewed Start taking the following new medications: Albuterol Sulfate (Ventolin Hfa) 90 MCG HFA.AER.AD 2 Puff Inhale through mouth Every 4 hours as needed for SHORTNESS OF BREATH Qty = 1 No Refills Comments: Last Taken:10/19/17 Time:1617 Nicotine (Nicotine Patch) 14 MG/24 HOUR PATCH.TD24 14 Milligram On the skin DAILY Qty = 14 No Refills Comments: Last Taken:10/19/17 Time:0834 Quetiapine Fumarate (Quetiapine Fumarate) 100 MG TABLET 100 Milligram ORAL THREE TIMES DAILY Qty = 45 No Refills Comments: Last Taken:10/19/17 Time:1606 Other Inst/Recommendations Follow up with your Diesel Automotive Technician Studies Pending at Discharge None Copies To: BOUBACAR Borges
[2017-10-19 16:04] VITALS: BP 107/57
--- NOTE | 2017-10-19 17:50 | SOCIAL WORKER PROG NOTE PSYCH ---
Social Work Progress Note Progress Note 11:50am This underwriter solicitation director met with patient. She stated that she planned to return to her daughter, Apoorva's home to stay after discharge until she identifies an inpatient rehab bed. This underwriter solicitation director and patient contacted her daughter by phone at [phone]. Apoorva stated that her mother may not stay with her due to her substance use. She was informed that referrals have been made to inpatient programs and the patient plans to continue to call each program until a bed is available. Apoorva maintained that the patient may not stay with her. Patient stated that she has a sober and safe friend she can stay with in [place], which would allow her easy access to the [facility] where she will attend IOP while waiting for an inpatient bed. Patient refused to provide the name and address of this friend and did not want to sign an ESTHER or for the friend to be contacted prior to discharge. Patient stated that she would contact her father for a ride from the hospital to her friend's house as she would like to see her father upon discharge. Patient denied SI/HI/AH/VH, appeared receptive to the recommendation to attend 12 Step Meetings. She identified a safety plan in which she would "call 911 or go to the ER." She was also informed that she would be provided with crisis numbers and warm lines upon discharge, which she was agreeable to utilizing. This underwriter solicitation director provided the patient with the following information: -[facility], [place]: [phone], per Annette at 2:41pm, patient may follow up with them after discharge to inquire about bed availability -[facility], [place]: [phone], per Partha at 2:43pm, no available beds today, patient may follow up with them after discharge to inquire about bed availability -[facility]: [phone], patient will follow up with [facility] for IOP as well as bed availability on their inpatient unit -[facility]: [phone], patient will follow with them regarding bed availability -[facility]: [phone], patient may follow up with them for bed availability, currently a four week wait -[facility]: [phone], patient will follow with them regarding bed availability -[facility]: [phone], this underwriter solicitation director spoke with Sarah at 2:56pm: patient may follow up with them for bed availability and to ask for Sarah; beds anticipated during the week of October, PPD results requested which will be read tomorrow, 10/20/17 This underwriter solicitation director spoke with Gila at the [facility]. She stated that the patient should ask a nurse tomorrow at [facility] to read the PPD results. If unable to, patient may go to [facility] to have it read. Patient was informed and agreeable to this plan. 6:07pm Multiple attempts were made to reach the patient's father regarding transportation. He did not respond and this underwriter solicitation director spoke with Bc at [facility] to schedule a ride. auto rental supervisor time is 1-4 hours, ref number: [id number]. Due to multiple unsuccessful attempts to reach her father, patient stated that she did not feel comfortable leaving [facility] and felt safer to discharge tomorrow. Patient was encouraged to include the friend she will be staying with in [place] in her discharge plan and allow for a meeting (phone or in person) to occur. Shortly after this occurred, the patient's father called. This underwriter solicitation director and patient spoke with her father who refused to provide transportation from the hospital stating that his daughter needed help and was not ready to leave the hospital. Discharge plans were reviewed and her father was informed that referrals had been made to multiple inpatient programs with the plan to attend [facility] at the [facility] beginning tomorrow while she continues to call the inpatient programs in interest of a bed. He was also informed that [facility] had been contacted, however, did not have any available beds today. This underwriter solicitation director reviewed the case with Dr. Torres and the discharge was cancelled for tonight with reassessment tomorrow. This underwriter solicitation director requested that the chemical unit operator cancel the [facility] to cancel eva's ride. This underwriter solicitation director spoke with Bree at [facility] at [phone] regarding the authorization due to the [facility] discharge being completed earlier today. This underwriter solicitation director was transferred to the clinician, Riana, who changed the discharge date to 10/20/17. She instructed this underwriter solicitation director to complete a concurrent review (see below). This underwriter solicitation director also left a vm for Milagro at [facility] ([phone]) to alert of the situation as directed by Riana. Member Name Member ID Member Subscriber Name Subscriber ID PETER VENTURA [id number] 1975 PETER VENTURA [id number] Pended Authorization # Client Authorization # Type of Request [id number] CONCURRENT Date of Admission/ Start of Services Requested From Submission Date 10/11/2017 10/19/2017 10/19/2017 Level of Service Type of Service Level of Care Type of Care INPATIENT/OC Mental Health Inpatient Inpatient Hospital - Inpatient Hospital Faxed Referral(s) Referred To: [facility] Transition of Care Documents sent: Health Summary Faxed to: [facility] Fax #: [phone]
[2017-10-19 19:54] VITALS: BP 103/60
[2017-10-20 12:12] VITALS: BP 108/62
[2017-10-20 12:34] VITALS: BP 108/62
--- NOTE | 2017-10-20 13:21 | CP SOUTH PROGRESS NOTE PSYCH ---
Psych (Inpt) Progress Note Progress Note Vital Signs Date Time Temp Pulse Resp B/P B/P Pulse O2 O2 Flow FiO2 Mean Ox Delivery Rate 10/20 1234 96 108/62 10/20 1212 96 10862 10/19 1954 98.4 92 103/60 10/19 1604 96 107/57 The patient's progress and treatment plan were reviewed in the multidisciplinary treatment team meeting. The disciplines involved in the team meeting: RN, STRIPPER PRELIMINARY, OTR/L, Art Therapist, and psychiatrist Mental Status Examination: The patient was alert, and oriented to time place and person. She reported that her mood was "very good' and she did appear to be in very good spirits. She denied feeling hopeless or worthless, denied wishing , and denied thoughts of suicide. Her speech was normal/not pressured, not slurred. The patient was coherent. She denied hallucinations. There were no delusions. She denied thoughts of violence or homicide Assessment: Sheri is a 42-year-old single Black female who was admitted to the inpatient psychiatric unit at [facility] on 10/11/2017 with feelings of depression ( 1010), anxiety (10/10), feeling hopeless and suicidal, but not having a plan. She reported trouble sleeping, poor concentration and poor appetite. The precipitant appeared to be homelessness and drug withdrawals. Today, Sheri was in very good spirits and denied thoughts of suicide for the third day in a row Treatment Plan Update: D/C home/to stay with daughter until she goes to rehab or [facility]
--- NOTE | 2017-10-20 17:01 | SOCIAL WORKER PROG NOTE PSYCH ---
Social Work Progress Note Progress Note This commercial underwriter met with patient. She expressed eagerness to discharge today. Patient agreed to the discharge plan of attending IOP at the [facility] and will present to their clinic tomorrow. The clinic is open at 5am and she is requested to be there before 3pm. Patient stated that she will go at 8:30am. Patient stated that she was interested in a referral to [facility] as this commercial underwriter had been informed this morning that they have available beds. The referral was sent and patient was agreeable to completing a phone screening with them by phone today. This commercial underwriter was informed that there were no female beds available today and that the patient could follow up from home. Patient later informed this commercial underwriter that she was not interested due to the distance from home and was not interested in their contact information. Patient denied SI/HI/AH/ VH. Patient stated that she would contact her father for a ride from the hospital. 12:52pm Patient approached this commercial underwriter and stated that she will be staying with her daughter upon discharge. Patient was agreeable to a phone meeting with her daughter, Apoorva. Patient and this commercial underwriter contacted her daughter, Apoorva, who was informed of the plan for the patient to attend IOP at the [facility] until an inpatient is available. Apoorva did not identify any concerns about discharge today and requested that the patient contact her with a time for discharge. Apoorva will meet the patient at the hospital with an Uber ride. Faxed Referral(s) Referred To: [facility]
== END 2017-10-20 15:07 | DRG 754 ==
LOC: ERH 10:17 → ERHI 10-11 17:41 → CP SOUTH 10-11 17:41 → ENTRNSPT 10-11 18:50 → EDTRNSPTSTS 10-11 19:00 → EDTRNSPT 10-11 19:00 → CP SOUTH 10-11 19:17 → CMPTRNSPT 10-11 19:27 → CP SOUTH 10-13 15:57
PROVIDERS: Emergency Medicine
DX: F32.9 Major depressive disorder, single episode, unspecified (principal); F11.90 Opioid use, unspecified, uncomplicated; F12.90 Cannabis use, unspecified, uncomplicated; F15.90 Other stimulant use, unspecified, uncomplicated
CPT/HCPCS: 80307; 81025; G0463; G0480; J3490

== ENCOUNTER 2017-11-13 17:02 | Inpatient (IN) | payer OTHER ==
[~2017-11-13] VITALS: Ht 160 cm; Wt 61.7 kg
[~2017-11-13 17:02] MED LIST changes: +ATIVAN2 MG PO; +METHADONE HCL5 MG PO; +NICOTINE PATCH1 EAC2 TOP; +OXYCODONE HCL5 M2 PO; +QUETIAPINE FUM100 M1 PO
--- NOTE | 2017-11-13 17:36 | ED PSYCHIATRIC COMPLAINT ---
See Addendum History of Present Illness General Chief Complaint: Psychiatric Related Complaint Stated Complaint: "I DONT FEEL SAFE" Source: patient Exam Limitations: poor historian Vital Signs & Intake/Output Vital Signs & Intake/Output Vital Signs Date Time Temp Pulse Resp B/P B/P Pulse O2 O2 Flow FiO2 Mean Ox Delivery Rate 11/14 1025 97.6 64 18 112/54 96 Room Air 11/14 0715 97.6 11/14 0632 97.6 11/14 0620 97.6 82 18 117/76 99 Room Air 11/13 2329 98.4 88 20 126/74 98 Room Air 11/13 1933 97.8 95 18 141/79 99 Room Air 11/13 1713 97.2 80 18 143/91 97 Room Air ED Intake and Output 11/14 0000 11/13 1200 Intake Total Output Total Balance Patient 140 lb Weight Allergies Coded Allergies: latex (Severe, ITCHY RASH 03/01/17) lactose (Severe, LACTOSE INTOLERANT 03/01/17) tramadol (Severe, ITCHING 03/01/17) Reconcile Medications Albuterol Sulfate (Ventolin Hfa) 90 MCG HFA.AER.AD 2 PUF INH Q4 PRN SHORTNESS OF BREATH Escitalopram Oxalate (Lexapro) 10 MG TABLET 3 TAB PO DAILY MENTAL HEALTH Nicotine (Nicotine Patch) 14 MG/24 HOUR PATCH.TD24 14 MG TOP DAILY Smoking cessation Pantoprazole Sodium (Protonix) 40 MG TABLET.DR 1 TAB PO DAILY GI (Reported) Quetiapine Fumarate 100 MG TABLET 100 MG PO TID mood stabilization Triage Note: PT TO ER C/C +SI THOUGHTS, NO PLAN. ADMITS TO DRINKING ETOH ALMOST DAILY, LAST DRINK LAST NIGHT. USING COCAINE FREQUENTLY. DENIES HI THOUGHT. PT ANXIOUS, TEARFUL. Triage Nurses Notes Reviewed? yes Onset: Abrupt Duration: unknown duration Timing: recent history : No Patient currently breastfeeds: No HPI: 11/13/17 6:36 PM 42-year-old female presents to the emergency department for depression with suicidal ideation. The patient states she was recently told that she has to have multiple dental extractions. She says she has numerous medical problems. She says that she is been on methadone. (Tj Chacon DO) Past History Travel History Traveled to [place] past 21 day No Medical History Any Pertinent Medical History? 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 No (Tj Chacon DO) Review of Systems Review of Systems Constitutional: Denies: fever. EENTM: Denies: visual changes. Respiratory: Denies: short of breath. Cardiovascular: Denies: chest pain. GI: Reports: no symptoms. Genitourinary: Reports: no symptoms. Musculoskeletal: Reports: no symptoms. Skin: Reports: no symptoms. Neurological/Psychological: Reports: no symptoms. Hematologic/Endocrine: Reports: no symptoms. Immunologic/Allergic: Reports: no symptoms. (Tj Chacon DO) Physical Exam Physical Exam General Appearance: alert, awake, anxious, mild distress Head: atraumatic, normal appearance Eyes: Bilateral: normal appearance, PERRL, EOMI. Ears, Nose, Throat: normal pharynx, normal ENT inspection Neck: normal inspection Respiratory: normal breath sounds, chest non-tender, no respiratory distress Cardiovascular: regular rate/rhythm Gastrointestinal: non-tender Extremities: normal range of motion Neurological/Psychiatric: no motor/sensory deficits, awake, alert, oriented x 3 Appearance/Memory/Insight: disheveled Behavoir/Eye Contact/Speech: cooperative Thoughts/Hallucinations: normal thought pattern Skin: intact, normal color, warm/dry SAD PERSONS SAD PERSONS Response Value Depression/Hopelessness? yes 2 Previous Attempts/Psych Care yes 1 Excessive Ethanol/Drug Use? yes 1 Rational Thinking Loss? yes 2 Single//? yes 1 Social Support? has no support 1 Total 8 SAD PERSONS Done? yes (Tj Chacon DO) Progress Differential Diagnosis: drug intoxication, drug overdose, drug withdrawal, DEPRESSION Plan of Care: Orders Procedure Date/time Status Heart Healthy Diet 11/14 B Active URINE 11/14 08 Complete URINE DRUG SCREEN FOR ER ONLY 11/14 08 Complete Continuous Observation Monitor 11/13 173 Active ETHANOL 11/13 1737 Complete COMPREHENSIVE METABOLIC PANEL 11/13 1737 Complete CBC WITHOUT DIFFERENTIAL 11/13 1737 Complete ED CRISIS PSYCH CONSULT 11/13 173 Active Current Medications Sig/Eusebio Start time Last Medication Dose Stop Time Status Admin Lorazepam 1 MG Q4P PRN 11/14 0645 AC (Ativan) Ibuprofen 800 MG Q6P PRN 11/14 0615 AC 11/14 (Motrin) 0632 Laboratory Tests 11/14/17 0945: Urine Opiates Screen 265, Methadone Screen 643 H, Barbiturate Screen < 60, Ur Phencyclidine Scrn < 6.00, Amphetamines Screen < 100, U Benzodiazepines Scrn < 85, Urine Cocaine Screen > 1000 H, Urine Cannabis Screen < 5.00, Urine Test NEGATIVE 11/13/17 1745: Anion Gap 8, Estimated GFR > 60, BUN/Creatinine Ratio 14.3, Glucose 92, Calcium 9.3, Total Bilirubin 0.4, AST 18, ALT 17, Alkaline Phosphatase 65, Total Protein 6.8, Albumin 3.8, Globulin 3.0, Albumin/Globulin Ratio 1.3, CBC w Diff NO MAN DIFF REQ, RBC 4.35, MCV 78.2 L, MCH 25.0 L, MCHC 32.0 L, RDW 18.4 H, MPV 10.0, Gran % 37.5 L, Lymphocytes % 48.0, Monocytes % 10.8 H, Eosinophils % 3.3 , Basophils % 0.4, Absolute Granulocytes 1.6, Absolute Lymphocytes 2.1, Absolute Monocytes 0.5, Absolute Eosinophils 0.1, Absolute Basophils 0, Serum Alcohol < 10.0 11/13/17 173: Methadone Screen Cancelled, Barbiturate Screen Cancelled, Ur Phencyclidine Scrn Cancelled, Amphetamines Screen Cancelled, U Benzodiazepines Scrn Cancelled, Urine Cocaine Screen Cancelled, Urine Cannabis Screen Cancelled, Urine Test Cancelled (Tj Chacon DO) Hand-Off Endorsed To: Yasemin FINK,Tj Sidhu Endorsed Time: 0700 Pending: consult (Loly FINK,Haja Pryor) Comments: 11/14/2017 10:07:16 AM I was asked to see patient due to worsening agitation. Patient states that she is feeling unsafe in the emergency department because of the corporate physical security supervisor presents. In addition she states that she got warm milk to drink and is making her feel nauseous. She states she takes Seroquel Ativan and methadone daily and I will order these along with cold milk for her to drink. Patient is pending crisis evaluation. 11/14/2017 11:27:26 AM patient signed out to me by Dr. Salcido at shift foreign exchange trader at 7 AM. Patient signed out to Dr. Chacon. (Yasemin FINK,Tj Sidhu) Departure Departure Disposition: STILL A PATIENT Condition: Stable Clinical Impression Primary Impression: Depression Referrals: Patient Has No Primary Care Dr Departure Forms: Customer Survey General Discharge Information Comments 11/13/17 6:41 PM The patient is pending crisis evaluation. She will be signed out to Dr. Salcido at 7 PM. (Tj Chacon DO) Critical Care Note Critical Care Note Critical Care Time: 30-74 min (Tj Chacon DO) Critical Care Time: 30-74 min (Tj Chacon DO)
[2017-11-13 18:08] LABS: ABSOLUTE BASOPHIL COUNT 0 /CUMM (0.0-0.2); ABSOLUTE EOSINOPHIL COUNT 0.1 /CUMM (0.0-0.7); ABSOLUTE GRANULOCYTE CT 1.6 /CUMM (1.4-6.5); ABSOLUTE LYMPH COUNT 2.1 /CUMM (1.2-3.4); ABSOLUTE MONOCYTE COUNT 0.5 /CUMM (0.10-0.60); BASOPHIL % 0.4 % (0.0-2.0); EOSINOPHIL % 3.3 % (0-5); GRANULOCYTE % 37.5 % (42.2-75.2); MEAN CORPUSCULAR VOLUME 78.2 FL (81.0-99.0); PLATELET COUNT 266 /CUMM (130-400); RBC DISTRIBUTION WIDTH 18.4 % (11.5-14.5); RED BLOOD CELL CT 4.35 /CUMM (4.20-5.40); WHITE BLOOD CELL COUNT 4.3 /CUMM (4.8-10.8)
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
[2017-11-14 22:20] VITALS: BP 143/80
[2017-11-14 22:53] VITALS: BP 143/80
[2017-11-14 23:50] VITALS: BP 118/65
[2017-11-15 09:35] VITALS: BP 128/72
[2017-11-15 09:37] VITALS: BP 128/72
--- NOTE | 2017-11-15 11:20 | SOCIAL WORKER PROG NOTE PSYCH ---
Social Work Progress Note Progress Note Sheri signed a release for [facility] this morning. [employer] faxed clincial information to [facility] and received a fax confirmation at 10:51AM. [employer] called [facility] and spoke with Lina at admissions. Lina stated that she had not yet received the fax at 11:05AM, but that there is usually a lag time in [facility]'s faxes. She stated that she would call back once the clincial information was received and reviewed. [employer] spoke with Lina at [facility] this afternoon to confirm that they had received the faxed clincial referral. Lina asked this script writer to confirm with Sheri that she was okay with the distance and with the $50/week room & board fee which had been the reasons she previously refused [facility]'s program last month. [employer] spoke with Sheri this afternoon. Although Sheri was observed to be lethargic, script writer observed Sheri successfully gather toiletries and brush her teeth. Sheri stated that she was okay with the distance and the fee. Additionally, Sheri stated that she had heard that [facility] was a "very good program". [facility] called back later to ask if Sheri would be able to be brought to [facility] by a friend or relative so that [facility] could assess her for suicidality themselves. Given the barrier of lack of relatives/friends, Le Lyn and script writer contacted [facility] as an alternate. Clincial information was faxed to [facility]. [employer] called to make sure that [facility] had received the referral, which they had. The [employer] representative stated that she would review the packet and pass it onto their admissions nurse who would then review the information to determine if Sheri would be qualified for their program. The number given to this script writer to call back tomorrow to check on the status of the referral is .
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
[2017-11-15 16:08] VITALS: BP 110/48
--- NOTE | 2017-11-15 16:27 | SOCIAL WORKER PROG NOTE PSYCH ---
Social Work Progress Note Progress Note Patient was seen individually in order to get a social history. Patient was very agreeable to talk, but she had a very hard time focusing, and fell asleep several times during the first 10 questions, assuring me each time that she was o.k. and wanted to continue. After the third time, we agreed that we would work on it another time, as she was to drowsy, and I was wooried she could fall over.
[2017-11-15 16:46] VITALS: BP 110/48
--- NOTE | 2017-11-15 17:10 | History & Physical ---
General Information and HPI MD Statement: I have seen and personally examined PETER ENRIQUEZ and documented this H&P. The patient is a 42 year old F who presented with a patient stated chief complaint of depression, suicidal edeation, & agitation. Source of Information: old records Exam Limitations: clinical condition, confusion (PATIENT SOMNOLENT-UNABLE TO SP) History of Present Illness: The patient is a 42 yo female with h/o GERD, gastritis, SMV thrombosis, hypothyroidism, asthma, anxiety/depression and polysubstance abuse who presented in the ED on the day of admission feeling depressed, unsafe, etc. She had similar admission on 10/11/17. She has h/o heroin and cocaine abuse as well as EtOH and has been on Methadone. She was heavily sedated and unable to give me any history at the time of my exam on [facility] today. Allergies/Medications Allergies: Coded Allergies: latex (Severe, ITCHY RASH 03/01/17) lactose (Severe, LACTOSE INTOLERANT 03/01/17) tramadol (Severe, ITCHING 03/01/17) Home Med list Albuterol Sulfate (Ventolin Hfa) 90 MCG HFA.AER.AD 2 PUF INH Q4 PRN SHORTNESS OF BREATH Escitalopram Oxalate (Lexapro) 10 MG TABLET 3 TAB PO DAILY MENTAL HEALTH Nicotine (Nicotine Patch) 14 MG/24 HOUR PATCH.TD24 14 MG TOP DAILY Smoking cessation Pantoprazole Sodium (Protonix) 40 MG TABLET.DR 1 TAB PO DAILY GI (Reported) Quetiapine Fumarate 100 MG TABLET 100 MG PO TID mood stabilization Compliance With Home Meds: UNKNOWN Past History Travel History Traveled to [place] past 21 day No Medical History Neurological: NONE EENT: NONE, CHART STATES PT NEEDS DENTAL EXTRACTIONS Cardiovascular: NONE Respiratory: asthma Gastrointestinal: peptic ulcer disease, GASTRITIS Hepatic: NONE Renal: NONE Musculoskeletal: sciatica, CARPAL TUNNEL C5/6 HERNIATED DISCS Psychiatric: anxiety, insomnia, opioid dependence, PANIC ATTACKS Endocrine: NONE Blood Disorders: SMV THROMBOSIS "CLOTTING DISORDER" Cancer(s): NONE CODING TECH/Reproductive: NONE History of MRSA: No History of VRE: No History of CDIFF: No Isolation History: Standard Tetanus Vaccine: 08/23/14 Surgical History Surgical History: non-contributory Past Family/Social History Family History Relations & Conditions if any FATHER Relation not specified for: FH: CAD (coronary artery disease) Psychosocial History Where do you live? Home Services at Home: None Primary Language: Angolan Illicit Drug Use: cocaine, heroin Functional Ability Ambulation: independent Review of Systems Review of Systems Constitutional: Denies: no symptoms. EENTM: Denies: no symptoms (NONE NOTED IN CHART). Cardiovascular: Denies: no symptoms (NONE NOTED IN CHART). Respiratory: Denies: no symptoms (NONE NOTED IN CHART). GI: Denies: no symptoms (NONE NOTED IN CHART). Genitourinary: Denies: no symptoms (NONE NOTED IN CHART). Musculoskeletal: Reports: back pain. Skin: Denies: no symptoms. Neurological/Psychological: Reports: confusion, depressed, emotional problems. Hematologic/Endocrine: Denies: no symptoms. Immunologic/Allergic: Denies: no symptoms. Exam & Diagnostic Data Last 24 Hrs of Vital Signs/I&O Vital Signs Date Time Temp Pulse Resp B/P B/P Pulse O2 O2 Flow FiO2 Mean Ox Delivery Rate 11/15 1646 82 110/48 11/15 1608 83 110/48 11/15 1608 82 110/48 11/15 0937 97.3 82 128/72 11/15 0935 97.3 82 128/72 11/15 0844 98.8 96 16 118/65 11/14 2350 96 16 118/65 11/14 2253 98.8 90 143/80 11/14 2220 98.8 90 143/80 11/14 2105 98.2 78 20 122/76 99 Room Air 11/14 1820 97.9 85 16 124/74 98 Room Air Intake & Output 11/15 1600 11/15 0800 11/15 0000 Intake Total Output Total Balance Patient 136 lb Weight Physical Exam General Appearance PATIENT HEAVILY SEDATED- UNABLE TO OBTAIN HISTORY Skin No Rashes, No Breakdown, No Significant Lesion HEENT Mucous Membr. moist/pink (POOR DENTITION) Neck No JVD, No thryomegaly, +2 Carotid Pulse wo Bruit, No LAD Cardiovascular Regular Rate, Normal S1, Normal S2, No Murmurs Lungs Clear to Auscultation, Normal Air Movement Abdomen Normal Bowel Sounds, Soft, No Tenderness, No Hepatospenomegaly, No Masses Neurological Exam Findings: UNABLE TO TEST - MOVES ALL EXTREMITIES Cranial Nerves II through XII: UNABLE TO TEST DUE TO CONDITION Extremities No Clubbing, No Cyanosis, No Edema, Normal Pulses, No Tenderness/ Swelling Vascular Normal Pulses, Pulses Symmetrical Last 24 Hrs of Labs/Roderick: Laboratory Tests 11/14/17 0945: Urine Opiates Screen 265, Methadone Screen 643 H, Barbiturate Screen < 60, Ur Phencyclidine Scrn < 6.00, Amphetamines Screen < 100, U Benzodiazepines Scrn < 85, Urine Cocaine Screen > 1000 H, Urine Cannabis Screen < 5.00, Urine Test NEGATIVE 11/13/17 1745: Anion Gap 8, Estimated GFR > 60, BUN/Creatinine Ratio 14.3, Glucose 92, Calcium 9.3, Total Bilirubin 0.4, AST 18, ALT 17, Alkaline Phosphatase 65, Total Protein 6.8, Albumin 3.8, Globulin 3.0, Albumin/Globulin Ratio 1.3, TSH 0.299, CBC w Diff NO MAN DIFF REQ, RBC 4.35, MCV 78.2 L, MCH 25.0 L, MCHC 32.0 L, RDW 18.4 H, MPV 10.0, Gran % 37.5 L, Lymphocytes % 48.0, Monocytes % 10.8 H, Eosinophils % 3.3, Basophils % 0.4, Absolute Granulocytes 1.6, Absolute Lymphocytes 2.1, Absolute Monocytes 0.5, Absolute Eosinophils 0.1, Absolute Basophils 0, Serum Alcohol < 10.0 11/13/17 1738: Methadone Screen Cancelled, Barbiturate Screen Cancelled, Ur Phencyclidine Scrn Cancelled, Amphetamines Screen Cancelled, U Benzodiazepines Scrn Cancelled, Urine Cocaine Screen Cancelled, Urine Cannabis Screen Cancelled, Urine Test Cancelled Assessment/Plan Assessment: Impression/Plan: #Depression & Suicidal Ideation- noted in ED chart. Unable to get history myself. Plan: Admit to [facility]. Meds as per psychiatry. Escitalopram/Quetiapine. #Polysubstance Abuse- heroin/cocaine/EtOH. Drug screen positive for methadone and cocaine. Plan: Methadone to continue. Agree with Clonidine/Bentyl/Baclofen/Ativan/thiamin /MVI/folate etc. #H/O Asthma- lungs clear at present. Plan: Agree with Albuterol prn. #Nicotine Dependence- noted. Plan: Nicotine patch. #Dental Disease- poor dentition. Orajel ordered. Plan: Continue Orajel. #H/O SMV Thrombosis- no details. Plan: Will follow abdominal exam. #GERD- on PPI. Plan: Omeprazole. As Ranked By This Provider Problem List: 1. Depression 2. Polysubstance abuse 3. Anxiety 4. Chronic dental pain 5. Suicidal ideation 6. GERD 7. Anxiety 8. Asthma Miscellaneous Miscellaneous Documentation Attending Case Discussed With: Shonda FINK,Walter Primary Care Physician: Unknown Patient sees these Specialists NONE Level of Patient Care: Patrick Consults Needed: Consulting Physician: NONE Attending MD Review Statement Attending Statement Attending MD Statement: examined this patient, reviewed EMR data (avail), discussed with nursing, amended to note Attending Assessment/Plan: As above. Limited exam due to condition.
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
[2017-11-15 20:34] VITALS: BP 107/61
[2017-11-15 20:35] VITALS: BP 107/61
[2017-11-16 08:07] VITALS: BP 105/48
[2017-11-16 08:12] VITALS: BP 105/48
--- NOTE | 2017-11-16 08:56 | CP SOUTH PROGRESS NOTE PSYCH ---
Psych (Inpt) Progress Note Progress Note Vital Signs Date Time Temp Pulse B/P Pulse O2 O2 Flow FiO2 11/16 0812 98.4 79 105/48 11/16 0807 98.4 79 105/48 11/15 2034 98.3 90 107/61 11/15 2033 98.3 90 107/61 11/16 2027 90 107/61 11/15 1646 82 110/48 11/15 1608 83 110/48 11/15 1608 82 110/48 The treatment team discussed the patient's treatment, progress, and aftercare plans Mental status examination: The patient was sedated and tired looking. She seems to think that she did not was because she has not slept for several days before she came to the hospital because of cocaine use. However she remains to be on clonidine and Seroquel and these were discontinued today and Seroquel was moved to just at bedtime. Her methadone dose was reduced to 20 mg today and will be cut down to 15 mg tomorrow. The patient otherwise reported that she is starting to feel a glimmer of hope and she reported that she is interested in going to a residential rehabilitation program. Today she denied thinking of suicide and she denied having violent thoughts or thoughts of homicide. She denied hallucinations and did not seem to be responding to internal stimuli. She denied feeling paranoid and there were no delusions during the interview. She does seem to have significant difficulty with attention and concentration primarily because she is overmedicated. Assessment: The patient is a 42-year-old black female known to me from her recent previous admission to Inpatient Psychiatry. She came back to the hospital following relapse to alcohol and significant amount of cocaine. She was having thoughts of suicide when she arrived until the emergency room. She has not shown any alcohol withdrawal symptoms and seemed to be pretty sedated today several reductions and sedating medications were made today. Treatment plan update: Reduce methadone to 20 mg today and 15 mg tomorrow DC clonidine Change Seroquel to just 50 mg at bedtime Continue Lexapro 20 mg daily Discontinue CIWA protocol and discontinue Ativan coverage reevaluate daily
[2017-11-16 12:37] VITALS: BP 120/60
--- NOTE | 2017-11-16 14:07 | SOCIAL WORKER PROG NOTE PSYCH ---
Social Work Progress Note Progress Note Plant Reliability Engineer called [facility] ([phone]) this morning to check on the status on the referral was faxed yesterday. Conchita at admissions stated that the commercial insurance underwriter needed to complete [facility]'s 3 page referral form. Plant Reliability Engineer completed and faxed the form and along with it refaxed the clinical paperwork that was faxed yesterday. Plant Reliability Engineer called Conchita back later on in the afternoon to confirm that she had received it. Conchita stated that she had recevied and reviewed it and had passed it along to the nurse in admissions to review. Conchita stated that the nurse would most likely complete her review and make a decision by tomorrow, November 17. Plant Reliability Engineer met with Sheri this afternoon. She reported to be feeling "exhausted " and "like crap". She presented as sedated, only being able to keep her eyes open intermittently. Sheri stated that she was having pain in her arms and chest which she believed to be caused by stress. She stated that the stress she was experiencing was originating from her daughter. She stated that her daughter was looking to her for support in light of her daugther's boyfriend's infidelity. Sheri said, "I am damned if I do, damned if I don't". She elaborated that she feels that she wants to help her daughter but also feels as though she needs to just focus on "healing" herself right now. Sheri was hopeful that [facility] would accept her for their residential rehab program. She stated "I am super ready to go [to rehab]". Sheri denied any suicidal ideation, and reported mild depression which she attributed to the aforementioned interpersonal difficulties.
[2017-11-16 16:04] VITALS: BP 105/54
[2017-11-16 19:55] VITALS: BP 109/61
[2017-11-17 07:59] VITALS: BP 116/67
[2017-11-17 11:56] VITALS: BP 104/63
--- NOTE | 2017-11-17 12:35 | CP SOUTH PROGRESS NOTE PSYCH ---
Psych (Inpt) Progress Note Progress Note Vital Signs Date Time Temp Pulse B/P B/P Pulse O2 O2 Flow FiO2 11/17 1156 83 104/63 11/17 0759 99.1 91 116/67 The treatment team discussed the patient's treatment, progress, and aftercare plans Mental status examination: The patient seemed less sedated. But she was oriented to person, place, and time. The patient denied thoughts of suicide she reported that she is interested in going to a residential rehabilitation program. denied having violent thoughts or thoughts of homicide. She denied hallucinations and did not seem to be responding to internal stimuli. She denied feeling paranoid and there were no delusions during the interview. She has difficulty with attention and concentration. Assessment: 42-year-old black female known to me from her recent previous admission to Inpatient Psychiatry. She came back to the hospital following relapse to alcohol and significant amount of cocaine. She was having thoughts of suicide when she arrived at the emergency room. The patient is showing signs of improvement and has been denying thoughts of suicide for the past 24 hours Treatment plan update: Reduce methadone to 10 mg Monday, and 5 mg Monday Continue Seroquel 50 mg at bedtime Continue Lexapro 20 mg daily Add Nasal decongestant reevaluate daily
[2017-11-17 16:08] VITALS: BP 126/68
--- NOTE | 2017-11-17 16:14 | SOCIAL WORKER PROG NOTE PSYCH ---
Social Work Progress Note Progress Note Determination Status: PENDED The services requested require additional review. You will be contacted regarding the status of this request if further information is needed. An authorization decision will be made within the required timeframes and details of that decision may be found under the member's authorization history. Member Name Member ID Member Subscriber Name Subscriber ID PETER VENTURA [id number] PETER VENTURA [id number] Pended Authorization # Client Authorization # Type of Request [id number] CONCURRENT Date of Admission/ Start of Services Requested From Submission Date 11/14/2017 11/17/2017 11/17/2017 Level of Service Type of Service Level of Care Type of Care INPATIENT/[facility] MENTAL HEALTH INPATIENT [facility]PATIENT [facility]OS[facility] - INPATIENT HOSPITAL Reason Code P77 Provider Name & Address Provider ID Provider Alternate ID NPI # for Authorization ALONA PARRA [address] [place] [id number] N/A
--- NOTE | 2017-11-17 16:22 | SOCIAL WORKER PROG NOTE PSYCH ---
Social Work Progress Note Progress Note Dr. Merchant and I met with Sheri this morning. She was sedated sitting in the chair in his office. She stated she is not suicidal, no HI, no AH/VH. She report she wants to go to a rehab. She has no place to live. She signed ESTHER's for rehabs and for [facility]. Faxed clinical to [facility]. Dr. Duncan plans to taper her Methadone. Sheri expressed how she wants to do something different this time and get help. Need to complete referral for Crisis and Respite. She needs to call [facility] - needs a list. (she agreed to [facility]). TC - [facility] - left voicemail if bed was available. Sheri stated she thinks she could find someone to bring her there. [facility]- [facility] - Admission asked if they reviewed clinical. GURDEEP Irvin returned call and stated they will not accept Sheri on Methadone and there are no beds. Phoned GURDEEP Irvin again and informed her per patient and Dr. Duncan. she will be off her Methadone by Mon. 11/20. Faxed updated note for today - Dr. Duncan's note.
[2017-11-17 20:07] VITALS: BP 138/65
[2017-11-18 07:55] VITALS: BP 123/74
[2017-11-18 12:02] VITALS: BP 116/58
--- NOTE | 2017-11-18 14:11 | CP SOUTH PROGRESS NOTE PSYCH ---
Psych (Inpt) Progress Note Progress Note Include the following elements, when applicable: Involvement in the active treatment of the patient with behavioral observations of the patient and the patient's response to the treatment. Review of the ongoing treatment process in the context of the treatment plan. Indication of how multi-disciplinary staff members are carrying out the treatment plan. Plans for future interventions and recommendations for revision of the treatment plan. Liaison with other physicians/providers. Progress Note: Chart reviewed. Progress discussed with nursing staff. Interviewed patient this morning. Patient reports "feeling better today". Reports mood improving. She questions reduction of previous meds "I wasn't too sedated because of the meds, I was too sedated because I was out using drugs for days on end". She denies SI/ HI or AVH. However, she does continue to appear mildly sedated. Vitals and labs reviewed. Findings are: wnl. No new labs. Mental status exam: Well groomed AAF, mildly sedated appearing, no abnormal movements. Fair eye contact. Speech minimally slurred otherwise wnl. Mood "getting better". Affect mildly constricted, non-labile. TP logical, TC wnl. Denies SI/HI. Denies perceptual distrubacnes. Cognition grossly intact. I/J fair. Assessment and plan: Mood continues to improve as does sedation. Continue current management as per primary team.
[2017-11-18 20:17] VITALS: BP 135/65
[2017-11-19 08:37] VITALS: BP 136/84
--- NOTE | 2017-11-19 10:26 | CP SOUTH PROGRESS NOTE PSYCH ---
Psych (Inpt) Progress Note Progress Note Include the following elements, when applicable: Involvement in the active treatment of the patient with behavioral observations of the patient and the patient's response to the treatment. Review of the ongoing treatment process in the context of the treatment plan. Indication of how multi-disciplinary staff members are carrying out the treatment plan. Plans for future interventions and recommendations for revision of the treatment plan. Liaison with other physicians/providers. Progress Note: Chart reviewed. Progress discussed with nursing staff. Interviewed patient this morning. Patient requests her seroquel to return to her previous dosing of 200 mg over the course of the day as she says this is helpful for her mood and anxiety. Denies sedation. Reports unusual feeling in her chest. Denies SI/HI. No AVH. Vitals and labs reviewed. Findings are: wnl. No new labs. Mental status exam: Well groomed AAF, not sedated appearing today, no abnormal movements. Fair eye contact. Speech minimally slurred otherwise wnl. Mood "getting better". Affect mildly constricted, non-labile. TP logical, TC wnl. Denies SI/HI. Denies perceptual disturbances. Cognition grossly intact. I/J fair. Assessment and plan: Mood continues to improve as does sedation. Will uptitrate seroquel to 100 mg BID. Also check EKG. I have very low suspicion of a cardiac event as the cause of her chest discomfort. Continue remainder of current management as per primary team.
[2017-11-19 13:09] VITALS: BP 116/59
[2017-11-19 16:27] VITALS: BP 122/68
[2017-11-19 19:52] VITALS: BP 127/68
[2017-11-20 08:08] VITALS: BP 118/68
--- NOTE | 2017-11-20 10:19 | CP SOUTH PROGRESS NOTE PSYCH ---
Psych (Inpt) Progress Note Progress Note The patient requested a higher dose of Seroquel (says this is helpful for her mood and anxiety. Denies sedation. Reports unusual feeling in her chest. Denies SI/HI. No AVH. Vital Signs: Date Time Temp Pulse B/P 11/20 0808 98.5 74 118/68 11/19 2234 99.1 11/20 1951 99.1 85 127/68 Mental status exam: The patient was well groomed, not sedated appearing today, no abnormal movements. Fair eye contact. Speech minimally slurred otherwise wnl. Mood "getting better". Affect mildly constricted, non-labile. TP logical, TC wnl. Denies SI/HI. Denies perceptual disturbances. Cognition grossly intact. Assessment and Plan: Increase seroquel to 100 mg three times daily Mental status exam: Well groomed AAF, not sedated appearing today, no abnormal movements. Fair eye contact. Speech minimally slurred otherwise wnl. Mood "getting better". Affect mildly constricted, non-labile. TP logical, TC wnl. Denies SI/HI. Denies perceptual disturbances. Cognition grossly intact. I/J fair. Assessment and plan: Mood continues to improve as does sedation. Will uptitrate seroquel to 100 mg BID. Also check EKG. I have very low suspicion of a cardiac event as the cause of her chest discomfort. Continue remainder of current management as per primary team.
[2017-11-20 12:14] VITALS: BP 112/56
--- NOTE | 2017-11-20 15:31 | SOCIAL WORKER PROG NOTE PSYCH ---
Social Work Progress Note Progress Note Faxed over documentation to [place] showing pt last dose of methadone was . Pt was alert and planned to complete screening for [facility], and she requested info for [facility]. I Pt has a list I phoned [facility] they do not have beds, pt states she will phone the other places to follow up. Pt states she has tooth pain, and needs 7 of her teeth pulled, she went to lunch and laid down after but did wake easily while we met.
[2017-11-20 15:46] VITALS: BP 112/67
[2017-11-20 20:04] VITALS: BP 115/58
[2017-11-21 07:49] VITALS: BP 101/62
--- NOTE | 2017-11-21 08:27 | CP SOUTH PROGRESS NOTE PSYCH ---
Psych (Inpt) Progress Note Progress Note The patient's progress, treatment plan, and aftercare plans were discussed and the treatment team meeting this morning. Vital Signs: Date Time Temp Pulse B/P 11/21 0749 97.8 95 101/62 Mental Status Exam (11:50 AM-12:10 Noontime): The patient was well groomed. She was not sedated. No abnormal movements. The patient spoke at a normal clip, she was not pressured, she was not slurred. She said her mood was "much better". She showed a full range of affect. She was coherent, without any thought disorder. She denied feeling paranoid, and there were no delusions during the interview. She denied hallucinations and she did not seem to be responding to internal stimuli. She reported that she starting to see a glimmer of hope and denied wishing or thinking of suicide in the past 24 hours. She reports that she is still very motivated to go to a residential rehabilitation program. She seemed to have reasonable attention and concentration, no difficulties with information processing, and no evidence of short-term memory deficits. 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
--- NOTE | 2017-11-21 11:19 | SOCIAL WORKER PROG NOTE PSYCH ---
Social Work Progress Note Progress Note PETER VENTURA [id number] 1975 PETER VENTURA [id number] Pended Authorization # Client Authorization # Type of Request [id number] CONCURRENT Date of Admission/ Start of Services Requested From Submission Date 11/14/2017 11/21/2017 11/21/2017
[2017-11-21 12:20] VITALS: BP 115/53
--- NOTE | 2017-11-21 14:02 | SOCIAL WORKER PROG NOTE PSYCH ---
Social Work Progress Note Progress Note Sheri and I met to follow up on her referrals to rehab. She had not made any calls as of 1pm, so we made calls together. Left messages with the admissions coordinators for [facility], and [facility]. We spoke with someone in admissions at [facility]. She said they are awaiting documentation regarding her Methadone being discontinued and updated progress notes. They reported having a female opening. The information requested was faxed to [phone]. Additionally Sheri agreed for me to refer her to [facility] in [place]. Clinical was faxed this afternoon. Also faxed referrals for the [facility]. Called [facility] admissions to ensure they rec'd the faxed information. Admissions confirmed and said the nurse was reviewing it and would call.
[2017-11-21 15:03] VITALS: BP 99/56
[2017-11-21 15:54] VITALS: BP 109/63
[2017-11-21 20:12] VITALS: BP 117/71
[2017-11-22 08:17] VITALS: BP 120/85
--- NOTE | 2017-11-22 09:46 | SOCIAL WORKER PROG NOTE PSYCH ---
Social Work Progress Note Progress Note [facility] - [facility] Nik Rolon spoke [facility]. She stated [facility] will call back, no beds. Apparently [facility] has [facility] past and "it did not go well." TC - [facility] - she stated no beds today, not sure about rest of week bed availability. She will call Alejandra Juarez LCSW back after she reads clinical. [facility]ah understands that plan is for rehab. TC- [facility] - left voicemail for beds for patient. Asked for call back to Alejandra Juarez. MONI.
--- NOTE | 2017-11-22 11:05 | SOCIAL WORKER PROG NOTE PSYCH ---
Ann MONTENEGROAlexandra 11/22/17 1103: Social Work Progress Note Progress Note Spoke with Jose Enrique from the [facility]. He reported that they are currently full and don't anticipate any openings this week. Called [facility]. Sheri would need to be clean for at least 30 days before an admission there. She recommended following up with [facility]. Met with Sheri who was coloring at the kitchen table. She was a little irritable, stating she wasn't feeling well due to being off her Methadone. She reported symptoms of sweats and loose stools. She expressed feeling upset over being taken off Methadone completely. She asked why she had to come off Methadone? I told her this was the administrative protocol for someone that has been using drugs and is on Methadone. Provided encouragement that she can do this and that this will pass. Encouraged her to make additional calls to rehabs today to schedule screenings. We made 3 calls together and I left messages for admissions coordinators at [facility] and [facility]. During this timeframe Sheri was nodding off in the chair. I consistently had to ask her to wake up. She appeared over sedated.
[2017-11-22 12:08] VITALS: BP 102/54
--- NOTE | 2017-11-22 13:43 | CP SOUTH PROGRESS NOTE PSYCH ---
Psych (Inpt) Progress Note Progress Note The patient's progress, treatment plan, and aftercare plans were discussed and the treatment team meeting this morning. Vital Signs: Temp: 98.6F, Pulse: 60 bpm, B/P: 102/54 mmHg Mental Status Examination: The patient was alert and oriented to time, place, and person. She spoke at a normal rate, she was not pressured, she was not slurred. She said her mood was "okay" but she was irritable reportedly because of pain in her teeth. She was coherent/no thought disorder. She denied feeling paranoid, and there were no delusions during the interview. She denied hallucinations and she did not seem to be responding to internal stimuli. She denied wishing or thinking of suicide in the past 48 hours. She reports that she is still very motivated to go to a residential rehabilitation program. She seemed to have reasonable attention and concentration, no difficulties with information processing, and no evidence of short-term memory deficits. Assessment A 42-year-old Black female who was admitted to the inpatient psychiatric unit at [facility] on 11/14/2017 because she was having thoughts of suicide at that time. The patient has significant history of substance abuse She is showing gradual improvement and is interested in going to a residential rehab program. She is completely off the methadone her last dose was on Monday Diagnoses: Unspecified Depressive DO Opioid Use DO Stimulant Use DO Cannabis Use DO Treatment Plan Update: Continue Seroquel 100 mg three times daily Continue Lexapro 20 mg daily Discontinue Wellbutrin, replace with diclofenac sodium 75 mg twice daily and Ultram 50 mg 4 times a day
[2017-11-22 16:07] VITALS: BP 107/61
[2017-11-22 20:00] VITALS: BP 122/63
[2017-11-23 07:46] VITALS: BP 112/70
--- NOTE | 2017-11-23 08:33 | SOCIAL WORKER PROG NOTE PSYCH ---
Social Work Progress Note Progress Note Called [facility] this morning. Spoke with Anita. She reported that Sarah the admission's coordinator was out this week. I asked who was handling referrals? She said Emily would most likely be and she will have her call me back. A few minutes later Anita called and reported that the new process is for the patient to fill out an application and fax it back. They will then call to let us know if she has been accepted or not. Sheri was accepted at [facility], but refused the bed. Stated she wants to return home to [place]. Asked that her daughter be contacted to discuss this plan. She attempted to call, but didn't get through. I ended up speaking with Sheri's daughter around 2pm. I explained that she passed on a bed for [facility] today and that she wants to return to be with her in [place]. Ena was not in agreement with this plan. She said she really didn't want her Mom staying there. I told her that I had already set up transportation and she is scheduled to come to her address. If she doesn't want to welcome here in, she can let her know and she can go to a [place] [facility] [place]. At that point she said she was calling her Grandfather to see if he could do anything to help with housing. I told Sheri of the outcome of this conversation. She did not see concerned and stated her daughter always reacts this way and will change her mind. Called [facility] transport to schedule transportation home. Confirmation number [id number]. Asked for a 2pm p/u. There were problems with transportation from [facility]. Patient is still waiting for ride as of 5pm.
--- NOTE | 2017-11-23 10:55 | SOCIAL WORKER PROG NOTE PSYCH ---
Social Work Progress Note Progress Note Spoke with [facility] at [facility]
--- NOTE | 2017-11-23 11:43 | SOCIAL WORKER PROG NOTE PSYCH ---
Social Work Progress Note Progress Note Sheri would like to return to [facility], she states she enjoys the groups and the program, she is hoping to work with her counselor to continue her rehab search. She indicates she would like to return home to her daughters home in [place]. Jazzy is expected to call to confirm. She left a voicemail with Brandee from [facility] requesting her re acceptance. Pt had been accepted to [facility], she refused this option. "Im not going anywhere else but home". Pt denies si/hi/ ah/vh.
[2017-11-23 12:03] VITALS: BP 109/53
[2017-11-23] MEDS ORDERED: IBUPROFEN800 M1 PO (12:48)
[2017-11-23] MEDS ORDERED: QUETIAPINE FUM100 M1 PO (12:52)
[2017-11-23] MEDS ORDERED: GABAPENTIN300 M2 PO (12:52)
[2017-11-23] MEDS ORDERED: CLONIDINE HCL0.1 MG PO (12:52)
[2017-11-23] MEDS ORDERED: PROTONIX40 M3 PO (12:52)
[2017-11-23] MEDS ORDERED: ONE DAILY MULT1 EAC2 PO (12:52)
[2017-11-23] MEDS ORDERED: NICOTINE PATCH1 EAC2 TOP (12:52)
[2017-11-23] MEDS ORDERED: VENTOLIN HFA18 GM INH (12:52)
[2017-11-23] MEDS ORDERED: TRAZODONE HCL50 M1 PO (12:52)
--- NOTE | 2017-11-23 12:57 | Patient Discharge Instructions ---
Psych Discharge Inst General Discharge Information Reason for Admission: thoughts of suicide Psy Discharge Primary Diag+ unspecified depressive di Psy Discharge Secondary Diag+ Opioid Dependence, Cocaine Use Disorder Summary Tests/Major Procedures There is no significant abnormalities in the laboratory testing Studies Pending at DC: None Patient Instructions Contact Information Your Psychiatrist on [facility] was Walter Merchant MD * If you are experiencing an emergency related to this hospitalization, please call [phone] to contact the treating psychiatrist or the psychiatrist-on- call. * To Request a copy of your medical records, please contact the Medical Records Department at [phone]. * To request results of studies pending at the time of discharge, please call [phone]. * Continue your Medications until directed to stop by your Healthcare provider. General Medication Information Please continue to take your new medications and your continued home medications , unless otherwise indicated on your discharge medication list, or unless directed by your MD or CLINICAL DENTAL TECHNICIAN to stop them. Special Instructions Diet Regular Activity Normal - Tobacco Use Treatment Offered Post DC Medications Offered: Script Given-See Med List Post DC Tobacco Treatment Plan: Refused Tobacco Tx Pgm - EtOH/Drug Use D/O Treatment Offered Post DC Medications Offered: Script Given-See Med List Post DC EtOH/SubAbuse TX Plan: Other SubAbuse/Dual Pgm Metabolic Screening Patient on a neuroleptic(s) . Enter below results for Hemoglobin A1C, and lipid panel if obtained during the last 365 days. BMI: 23.200 Blood Pressure: 109/53 Laboratory Results From [facility] (If applicable): Lab Cholesterol 137 MG/DL 10/10/17 1245 Cholesterol/HDL Ratio 3 % 10/10/17 1245 HDL Cholesterol 51 mg/dL 10/10/17 1245 Hemoglobin A1c 5.7 % 10/10/17 1245 LDL Cholesterol, Calc 66 mg/dL 10/10/17 1245 Triglycerides 102 mg/dL 10/10/17 1245 Methadone Screen > 735 NG/ML H 10/10/17 1246 Ur Phencyclidine Scrn > 72.00 NG/ML H 10/10/17 1246 Urine Cocaine Screen > 1000 NG/ML H 10/10/17 1246 Advance Directives Does the Patient have Medical Advance Directives No/Refused further info Does Pt have Psychiatric Advance Directives? No/Refused further info Does Patient have a Designated Surrogate Decision Maker: No Information About Psychiatric Advance Directives Provided? Refused Discharge Plan Post Hospital Treatment Plan: [facility]
--- NOTE | 2017-11-23 13:06 | DISCHARGE SUMMARY REPORT-PSYCH ---
Visit Information Visit Dates/Diagnosis' Admission Date: 11/14/17 Discharge Date: 11/23/17 Reason for Admission: thoughts of suicide Psy Discharge Primary Diag: unspecified depressive di Psy Discharge Secondary Diag: Opioid Dependence, Cocaine Use Disorder Hospital Course Course Allergies: Coded Allergies: latex (Severe, ITCHY RASH 03/01/17) lactose (Severe, LACTOSE INTOLERANT 03/01/17) tramadol (Severe, ITCHING 03/01/17) Hospital Course/TX Response: The patient's progress, treatment plan, and aftercare plans were discussed and the treatment team meeting this morning. Vital Signs: Temp: 97.3F, Pulse: 98 bpm, B/P: 109/53 mmHg Mental Status Examination: The patient was alert and oriented to time, place, and person. She spoke at a normal rate, she was not pressured, she was not slurred. She said her mood was "okay". She denied wishing or thinking of suicide in the past 72 hours. In the morning report the team reported that the patient has been irritable , entitled, and disrespectful. The patient reportedly that she has been irritable because of pain in her teeth. She was coherent/no thought disorder. She denied feeling paranoid, and there were no delusions during the interview. The patient denied hallucinations and she did not seem to be responding to internal stimuli. She seemed to have reasonable attention and concentration, no difficulties with information processing, and no evidence of short-term memory deficits. Assessment A 42-year-old Black female who was admitted to the inpatient psychiatric unit at [facility] on 11/14/2017 because she was having thoughts of suicide at that time. The patient has significant history of substance abuse She is showing gradual improvement and change her mind about going to residential rehabilitation program. Today she was offered a bed that [facility] but she declined and insisted reported that she wants to go home (it's not clear what she meant by that but it sounded like it's going back to her daughter's) Diagnoses: Unspecified Depressive DO Opioid Use DO Stimulant Use DO Cannabis Use DO Treatment Plan Update: May be discharged home to continue treatment with intensive outpatient program at [facility] Discharge [facility] - Tobacco Use Treatment Offered Post DC Medications Offered: Script Given-See Med List Post DC Tobacco Treatment Plan: Refused Tobacco Tx Pgm - EtOH/Drug Use D/O Treatment Offered Post DC Medications Offered: Script Given-See Med List Post DC EtOH/SubAbuse TX Plan: Other SubAbuse/Dual Pgm Metabolic Screening - Screen if on a Neuroleptic Medication - Metabolic screening should include: - Blood Pressure, BMI, Glucose or Hgb A1c, & a - Lipid profile from within the past 365 days. Metabolic Screening Patient on a neuroleptic(s) . Enter below results for Hemoglobin A1C, and lipid panel if obtained during the last 365 days. BMI: 23.200 Blood Pressure: 109/53 Laboratory Results From [facility] (If applicable): Lab Amylase 54 U/L 12/24/16 0025 Cholesterol 137 MG/DL 10/10/17 1245 Cholesterol/HDL Ratio 3 % 10/10/17 1245 HDL Cholesterol 51 mg/dL 10/10/17 1245 Hemoglobin A1c 5.7 % 10/10/17 1245 LDL Cholesterol, Calc 66 mg/dL 10/10/17 1245 Triglycerides 102 mg/dL 10/10/17 1245 Discharge Instructions General Discharge Information Multiple Neuroleptics: ([X]) Not Applicable Discharge Diet Regular Discharge Activity Normal DC Disposition: Discharge home to her daughter's home Referrals Ordered Referrals Provider Referral 11/24/17 For Groups: [[facility]] [facility] [address]. [place], [place] [phone] Prescriptions Stop taking the following medications: Escitalopram Oxalate (Lexapro) 10 MG TABLET ORAL DAILY Qty = 45 Continue taking these medications: Albuterol Sulfate (Ventolin Hfa) 90 MCG HFA.AER.AD 2 Puff Inhale through mouth Every 4 hours as needed for SHORTNESS OF BREATH Qty = 1 This prescription has been renewed Nicotine (Nicotine Patch) 14 MG/24 HOUR PATCH.TD24 14 Milligram On the skin DAILY Qty = 14 This prescription has been renewed Quetiapine Fumarate (Quetiapine Fumarate) 100 MG TABLET 100 Milligram ORAL THREE TIMES DAILY Qty = 45 This prescription has been renewed Pantoprazole Sodium (Protonix) 40 MG TABLET.DR 1 Tablet ORAL DAILY Qty = 30 This prescription has been renewed Start taking the following new medications: Ibuprofen (Ibuprofen) 800 MG TABLET 800 Milligram ORAL EVERY 4 HOURS NEEDED as needed for teeth pain (Max. 3200 mg/day) Qty = 30 No Refills Clonidine HCl (Clonidine HCl) 0.1 MG TABLET 0.1 Milligram ORAL EVERY SIX HOURS NEEDED as needed for opioid withdrawal Qty = 30 No Refills Gabapentin (Gabapentin) 300 MG CAPSULE 900 Milligram ORAL EVERY SIX HOURS NEEDED as needed for anxiety or irritability Qty = 60 No Refills Trazodone HCl (Trazodone HCl) 50 MG TABLET 50 Milligram ORAL AT BEDTIME as needed for INSOMNIA Qty = 15 No Refills Multivitamin (One Daily Multivitamin) 1 EACH TABLET 1 Tablet ORAL DAILY Qty = 30 No Refills Studies Pending at Discharge None Copies To: [facility]
[2017-11-23 16:08] VITALS: BP 121/60
--- NOTE | 2017-11-24 08:41 | SOCIAL WORKER PROG NOTE PSYCH ---
Social Work Progress Note Faxed Referral(s) Referred To: [facility] Transition of Care Documents sent: Health Summary Faxed to: [facility] Fax #: [phone] Faxed by: Margaret Hatfield Date faxed: 11/24/17 Time Faxed: [phone]
--- NOTE | 2017-11-24 08:49 | SOCIAL WORKER PROG NOTE PSYCH ---
Social Work Progress Note Faxed Referral(s) Referred To: [facility] Transition of Care Documents sent: Health Summary Faxed to: [facility] Fax #: [phone] Faxed by: ALOK SRINIVASAN LCSW Date faxed: 11/24/17 Time Faxed: [phone] Comment: PT DISCHARGED FROM [facility] 6PM ON 11/23 - TRANSPORTATION ISSUES
== END 2017-11-23 18:05 | DRG 754 ==
LOC: ERH 17:02 → ERHI 11-14 20:33 → CP SOUTH 11-14 20:33 → ENTRNSPT 11-14 21:29 → CP SOUTH 11-14 21:41 → CMPTRNSPT 11-14 21:48 → CP SOUTH 11-15 09:02
PROVIDERS: Emergency Medicine
DX: F32.9 Major depressive disorder, single episode, unspecified (principal)
CPT/HCPCS: 36415; 80307; 81025; 82436; 93005; 93010; G0480; J3490